=== PATIENT | male | born 1935 | race Caucasian/White ===

== ENCOUNTER 2016-08-16 18:13 | Observation (INO) | payer OTHER ==
[2016-08-16 18:20] VITALS: BMI 22.8
[2016-08-16] MEDS ORDERED: ASPIRIN 81 MG CHEWABLE TABLETS PO ONE (19:32)
[2016-08-16] MEDS ORDERED: METOPROLOL TARTRATE 5 MG/5 ML VIAL IVPUSH ONE (19:49)
--- NOTE | 2016-08-16 19:49 | PDOC ---
History of Present Illness - General History Source: Patient Exam Limitations: No Limitations - History of Present Illness Initial Comments: 08/16/16 19:51 The patient is a 80 year old male with significant past medical history of prostate CA with seeds, hypertension, and hyperlipidemia who presents to the ED with 2 days of chest pain. Patient describes his chest pain as stiffness, nonradiating, that is worsened with exertion. He states he is a runner, however he notes that when he walks up the stairs, his chest pain worsens. Patient reports associated SOB and lightheadedness. He took a baby aspirin at around 4pm today with no improvement. He denies diaphoresis, shoulder pain, arm pain, and jaw pain. Patient reports he experience similar symptoms in 2016, where he visited the ED and was sent to [facility]. At that time, he had a angiogram that did not require a stenting procedure. The patient denies fever, chills, cough, abdominal pain, nausea, vomiting, and diarrhea. Allergies: NKDA Social History: No alcohol, tobacco, or drug use reported. Past Surgical History: angiogram PCP: Dr. Fabián Alba <Jess Montalvo - Last Filed: 08/16/16 22:36> - General History Source: Patient <Chris Lloyd - Last Filed: 08/16/16 22:39> - General Chief Complaint: Chest Pain Stated Complaint: CHEST PAIN Time Seen by Provider: 08/16/16 19:49 Past History <Jess Montalvo - Last Filed: 08/16/16 22:36> - Past Medical History Cancer: Yes (prostate ca with seeds 2004) HTN: Yes (NON COMP WITH MEDS/) - Immunization History Immunization Up to Date: Yes - Psycho/Social/Smoking Cessation Hx Anxiety: No Suicidal Ideation: No Smoking Status: No Smoking History: Never smoked Have you smoked in the past 12 months: No Number of Cigarettes Smoked Daily: 0 Hx Alcohol Use: No Drug/Substance Use Hx: No Substance Use Type: None <Chris Lloyd - Last Filed: 08/16/16 22:39> - Past Medical History Allergies/Adverse Reactions: Allergies Allergy/AdvReac Type Severity Reaction Status Date / Time No Known Allergies Allergy Verified 08/16/16 18:19 Home Medications: Ambulatory Orders Atorvastatin Ca [Lipitor] 10 mg PO HS #30 tablet 10/28/15 Clopidogrel Bisulfate [Plavix -] 75 mg PO DAILY #30 tablet 10/28/15 Review of Systems - Review of Systems Able to Perform ROS?: Yes Comments:: 08/16/16 19:51 CONSTITUTIONAL: Absent: fever, chills, diaphoresis, generalized weakness, malaise, loss of appetite HEENT: Absent: rhinorrhea, nasal congestion, throat pain, throat swelling, difficulty swallowing, mouth swelling, ear pain, eye pain, visual Changes CARDIOVASCULAR: +chest pain, lightheadedness Absent: syncope, palpitations, irregular heart rate , peripheral edema RESPIRATORY: +SOB Absent: cough, dyspnea with exertion, orthopnea, wheezing, stridor, hemoptysis GASTROINTESTINAL: Absent: abdominal pain, abdominal distension, nausea, vomiting, diarrhea, constipation, melena, hematochezia GENITOURINARY: Absent: dysuria, frequency, urgency, hesitancy, hematuria, flank pain, genital pain MUSCULOSKELETAL: Absent: myalgia, arthralgia, joint swelling SKIN: Absent: rash, itching, pallor NEUROLOGIC: Absent: headache, focal weakness or paresthesias, dizziness, unsteady gait, seizure, mental status changes, bladder or bowel incontinence PSYCHIATRIC: Absent: anxiety, depression, suicidal or homicidal ideation, hallucinations. <Jess Montalvo - Last Filed: 08/16/16 22:36> *Physical Exam - Vital Signs Last Vital Signs Temp Pulse Resp BP Pulse Ox 97.5 F L 81 20 183/98 98 08/16/16 18:16 08/16/16 18:16 08/16/16 18:16 08/16/16 18:16 08/16/16 18:16 - Physical Exam Comments: 08/16/16 19:51 GENERAL: Well developed, well nourished. Awake and alert. No acute distress. HEENT: Normocephalic, atraumatic. PERRLA, EOMI. No conjunctival pallor. Sclera are non- icteric. Moist mucous membranes. Oropharynx is clear. NECK: Supple. Full ROM. No JVD. Carotid pulses 2+ and symmetric, without bruits. No thyromegaly. No lymphadenopathy. CARDIOVASCULAR: Regular rate and rhythm. No murmurs, rubs, or gallops. Distal pulses are 2+ and symmetric. PULMONARY: No evidence of respiratory distress. Lungs clear to auscultation bilaterally. No wheezing, rales or rhonchi. ABDOMINAL: Soft. Non-tender. Non-distended. No rebound or guarding. No organomegaly. Normoactive bowel sounds. MUSCULOSKELETAL Normal range of motion at all joints. No bony deformities or tenderness. No CVA tenderness. EXTREMITIES: No cyanosis. No clubbing. No edema. No calf tenderness. SKIN: Warm and dry. Normal capillary refill. No rashes. No jaundice. NEUROLOGICAL: Alert, awake, appropriate. Cranial nerves 2-12 intact. Moving all extremities. No focal neurological deficits. PSYCHIATRIC: Cooperative. Good eye contact. Appropriate mood and affect. <Jess Montalvo - Last Filed: 08/16/16 22:36> - Vital Signs Last Vital Signs Temp Pulse Resp BP Pulse Ox 97.5 F L 81 20 183/98 98 08/16/16 18:16 08/16/16 18:16 08/16/16 18:16 08/16/16 18:16 08/16/16 18:16 <Chris Lloyd - Last Filed: 08/16/16 22:39> Heart Score/ECG Review - ECG Impressions Comment:: 08/16/16 19:51 Sinus rhythm with premature atrial complexes @74bpm RBBB Left anterior fascicular block Bifascicular block Abnormal ECG <Jess Montalvo - Last Filed: 08/16/16 22:36> ED Treatment Course - LABORATORY CBC & Chemistry Diagram: 08/16/16 20:00 08/16/16 20:00 <Jess Montalvo - Last Filed: 08/16/16 22:36> - LABORATORY CBC & Chemistry Diagram: 08/16/16 20:00 08/16/16 20:00 - RADIOLOGY Radiology Studies Ordered: Category Date Time Status CHEST PA & LAT [RAD] Stat Radiology 08/16/16 19:32 Ordered <Chris Lloyd - Last Filed: 08/16/16 22:39> Medical Decision Making - Medical Decision Making 08/16/16 21:[address] Joelle Alba (via answering service) at 21:58, 22:[address] Alie Sanchez (covering for Dr. Alba) responded back at 22:36 and patient's case was discussed. <Jess Montalvo - Last Filed: 08/16/16 22:36> - Medical Decision Making 08/16/16 22:38 Dr. Lloyd: The scribe's documentation has been prepared under my direction and personally reviewed by me in its entirery. I confirm that the note above accurately reflects all work, treatment, procedures, and medical decision making performed by me. Spoke for covering physician for 's PCP. Pt to be admitted to inpatient telemetry <Chris Lloyd - Last Filed: 08/16/16 22:39> *DC/Admit/Observation/Transfer - Attestations Scribe Attestion: 08/16/16 19:53 Documentation prepared by Jess Montalvo, acting as medical administrative technician for Chris Lloyd MD <Jess Montalvo - Last Filed: 08/16/16 22:36> - Discharge Dispostion Admit: Yes <Chris Lloyd - Last Filed: 08/16/16 22:39> Diagnosis at time of Disposition: Chest pain - Discharge Dispostion Condition at time of disposition: Stable - Referrals Referrals: Fabián Alba MD [Primary Care Provider] -
[2016-08-16] MEDS ORDERED: ASPIRIN 81 MG CHEWABLE TABLETS ONE (19:51)
[2016-08-16 20:09] LABS: BASOPHIL 0.6 % (0-2.0); EOSINOPHIL 0.3 % (0-4.5); MCH 28.5 pg (25.7-33.7); MCHC 32.3 g/dl (32.0-35.9); MEAN CELL VOLUME 88.2 fl (80-96); MEAN PLT VOLUME 8.9 fl (7.5-11.1); NEUTROPHILS 73.5 % (42.8-82.8); PLATELET COUNT 273 K/MM3 (134-434); RDW 13.6 % (11.9-15.9); WHITE BLOOD COUNT 8.2 K/mm3 (4.0-10.0)
[2016-08-16] MEDS ORDERED: METOPROLOL TARTRATE 5 MG/5 ML VIAL ONE (20:09)
[2016-08-16 20:35] LABS: INR 1.11 (0.82-1.09); PROTHROMBIN TIME (PATIENT) 12.2 SEC (9.98-11.88)
[2016-08-16 20:43] LABS: ALBUMIN 4.2 g/dl (3.4-5.0); ANION GAP 5 (8-16); CALCIUM 9.9 mg/dL (8.5-10.1); CO2 30 mmol/L (21-32); GLUCOSE,RANDOM 103 mg/dL (74-106); MAGNESIUM 2.4 mg/dL (1.8-2.4); SGOT/AST 16 U/L (15-37); SGPT/ALT 23 U/L (12-78)
[2016-08-16 20:48] LABS: ALK PHOS 103 U/L (45-117); BILIRUBIN,TOTAL 0.6 mg/dL (0.2-1.0); TOT PROT 7.5 g/dl (6.4-8.2); TROPONIN I < 0.02 ng/ml (0.00-0.05)
[2016-08-17 08:09] LABS: CHOLESTEROL 158 mg/dL (50-200); LDL CHOLESTEROL (ONLY SJRH) 89 mg/dL (5-100); TROPONIN I < 0.02 ng/ml (0.00-0.05)
--- NOTE | 2016-08-17 09:06 | HP ---
Admitting History and Physical - Primary Care Physician PCP: Fabián Alba - Admission Chief Complaint: chest tightness History of Present Illness: Shovelled snow this weekend, since then he noted exertional dyspnea with some chest tightness. None at rest. Otherwise in his usual state of health. Was here last October for similar symptoms and mildly positive stress test. At that time he went for [email or web address] which was reportedly ok. History Source: Patient Limitations to Obtaining History: No Limitations - Past Medical History Cardiovascular: Yes: HTN (hypertensive in ER yesterday, not since.) Pulmonary: Yes: COPD Renal/: Yes: Other (Prostate ca s/p seeds) - Smoking History Smoking history: Former smoker Have you smoked in the past 12 months: No Aproximately how many cigarettes per day: 0 - Alcohol/Substance Use Hx Alcohol Use: No - Social History Usual Living Arrangement: Yes: With Significant Other ADL: Independent History of Recent Travel: No Home Medications - Allergies Allergies/Adverse Reactions: Allergies Allergy/AdvReac Type Severity Reaction Status Date / Time No Known Allergies Allergy Verified 08/16/16 18:19 - Home Medications Home Medications: Ambulatory Orders Atorvastatin Ca [Lipitor] 10 mg PO HS #30 tablet 10/28/15 Clopidogrel Bisulfate [Plavix -] 75 mg PO DAILY #30 tablet 10/28/15 Family Disease History - Family Disease History Family History: Unremarkable Review of Systems - Review of Systems Constitutional: denies: No Symptoms Eyes: denies: No Symptoms HENT: denies: No Symptoms Neck: denies: No Symptoms Cardiovascular: reports: Chest Pain, Shortness of Breath Respiratory: denies: Cough, Orthopnea Genitourinary: denies: No Symptoms Musculoskeletal: denies: No Symptoms Neurological: denies: No Symptoms Hematology/Lymphatic: denies: No Symptoms Psychiatric: denies: No Symptoms Physical Examination Vital Signs: Vital Signs Temperature 97.5 F L 08/17/16 06:00 Pulse Rate 56 L 08/17/16 06:00 Respiratory Rate 18 08/17/16 06:00 Blood Pressure 122/64 08/17/16 06:00 O2 Sat by Pulse Oximetry (%) 99 08/16/16 23:53 Constitutional: Yes: No Distress, Calm Eyes: Yes: EOM Intact HENT: Yes: Normocephalic Neck: Yes: Trachea Midline Cardiovascular: Yes: Regular Rate and Rhythm Respiratory: Yes: CTA Bilaterally Gastrointestinal: Yes: Normal Bowel Sounds, Soft Musculoskeletal: Yes: WNL Extremities: Yes: WNL Edema: No Neurological: Yes: WNL Psychiatric: Yes: WNL Labs: CBC,CMP WBC 8.2 K/mm3 (4.0-10.0) 08/16/16 20:00 RBC 5.24 M/mm3 (4.00-5.60) 08/16/16 20:00 Hgb 14.9 GM/dL (11.7-16.9) 08/16/16 20:00 Hct 46.2 % (35.4-49) 08/16/16 20:00 MCV 88.2 fl (80-96) 08/16/16 20:00 MCHC 32.3 g/dl (32.0-35.9) 08/16/16 20:00 RDW 13.6 % (11.9-15.9) 08/16/16 20:00 Plt Count 273 K/MM3 (134-434) D 08/16/16 20:00 MPV 8.9 fl (7.5-11.1) 08/16/16 20:00 Neutrophils % 73.5 % (42.8-82.8) 08/16/16 20:00 Lymphocytes % 15.5 % (8-40) D 08/16/16 20:00 Monocytes % 10.1 % (3.8-10.2) 08/16/16 20:00 Eosinophils % 0.3 % (0-4.5) 08/16/16 20:00 Basophils % 0.6 % (0-2.0) 08/16/16 20:00 Sodium 139 mmol/L (136-145) 08/16/16 20:00 Potassium 4.8 mmol/L (3.5-5.1) 08/16/16 20:00 Chloride 104 mmol/L (98-107) 08/16/16 20:00 Carbon Dioxide 30 mmol/L (21-32) 08/16/16 20:00 Anion Gap 5 (8-16) L 08/16/16 20:00 BUN 16 mg/dL (7-18) 08/16/16 20:00 Creatinine 1.0 mg/dL (0.7-1.3) 08/16/16 20:00 Creat Clearance w eGFR > 60 (>60) 08/16/16 20:00 Random Glucose 103 mg/dL (74-106) 08/16/16 20:00 Calcium 9.9 mg/dL (8.5-10.1) 08/16/16 20:00 Magnesium 2.4 mg/dL (1.8-2.4) 08/16/16 20:00 Total Bilirubin 0.6 mg/dL (0.2-1.0) 08/16/16 20:00 AST 16 U/L (15-37) D 08/16/16 20:00 ALT 23 U/L (12-78) 08/16/16 20:00 Alkaline Phosphatase 103 U/L (45-117) 08/16/16 20:00 Creatine Kinase 60 IU/L (39-308) 08/17/16 05:35 Troponin I < 0.02 ng/ml (0.00-0.05) 08/17/16 05:35 Total Protein 7.5 g/dl (6.4-8.2) 08/16/16 20:00 Albumin 4.2 g/dl (3.4-5.0) 08/16/16 20:00 Triglycerides 125 mg/dL (35-160) D 08/17/16 05:35 Cholesterol 158 mg/dL (50-200) 08/17/16 05:35 Total LDL Cholesterol 89 mg/dL (5-100) D 08/17/16 05:35 HDL Cholesterol 53 mg/dL (40-60) D 08/17/16 05:35 Laboratory Last Values WBC 8.2 K/mm3 (4.0-10.0) 08/16/16 20:00 RBC 5.24 M/mm3 (4.00-5.60) 08/16/16 20:00 Hgb 14.9 GM/dL (11.7-16.9) 08/16/16 20:00 Hct 46.2 % (35.4-49) 08/16/16 20:00 MCV 88.2 fl (80-96) 08/16/16 20:00 MCHC 32.3 g/dl (32.0-35.9) 08/16/16 20:00 RDW 13.6 % (11.9-15.9) 08/16/16 20:00 Plt Count 273 K/MM3 (134-434) D 08/16/16 20:00 MPV 8.9 fl (7.5-11.1) 08/16/16 20:00 Neutrophils % 73.5 % (42.8-82.8) 08/16/16 20:00 Lymphocytes % 15.5 % (8-40) D 08/16/16 20:00 Monocytes % 10.1 % (3.8-10.2) 08/16/16 20:00 Eosinophils % 0.3 % (0-4.5) 08/16/16 20:00 Basophils % 0.6 % (0-2.0) 08/16/16 20:00 INR 1.11 (0.82-1.09) 08/16/16 20:00 Sodium 139 mmol/L (136-145) 08/16/16 20:00 Potassium 4.8 mmol/L (3.5-5.1) 08/16/16 20:00 Chloride 104 mmol/L (98-107) 08/16/16 20:00 Carbon Dioxide 30 mmol/L (21-32) 08/16/16 20:00 Anion Gap 5 (8-16) L 08/16/16 20:00 BUN 16 mg/dL (7-18) 08/16/16 20:00 Creatinine 1.0 mg/dL (0.7-1.3) 08/16/16 20:00 Creat Clearance w eGFR > 60 (>60) 08/16/16 20:00 Random Glucose 103 mg/dL (74-106) 08/16/16 20:00 Calcium 9.9 mg/dL (8.5-10.1) 08/16/16 20:00 Magnesium 2.4 mg/dL (1.8-2.4) 08/16/16 20:00 Total Bilirubin 0.6 mg/dL (0.2-1.0) 08/16/16 20:00 AST 16 U/L (15-37) D 08/16/16 20:00 ALT 23 U/L (12-78) 08/16/16 20:00 Alkaline Phosphatase 103 U/L (45-117) 08/16/16 20:00 Creatine Kinase 60 IU/L (39-308) 08/17/16 05:35 Troponin I < 0.02 ng/ml (0.00-0.05) 08/17/16 05:35 Total Protein 7.5 g/dl (6.4-8.2) 08/16/16 20:00 Albumin 4.2 g/dl (3.4-5.0) 08/16/16 20:00 Triglycerides 125 mg/dL (35-160) D 08/17/16 05:35 Cholesterol 158 mg/dL (50-200) 08/17/16 05:35 Total LDL Cholesterol 89 mg/dL (5-100) D 08/17/16 05:35 HDL Cholesterol 53 mg/dL (40-60) D 08/17/16 05:35 Imaging - Results Chest X-ray: Report Reviewed EKG: Report Reviewed Problem List - Problems (1) Chest pain Code(s): R07.9 - CHEST PAIN, UNSPECIFIED Assessment/Plan serial cardiac enzymes are negative requested echo cardiology f/up
[2016-08-17] MEDS: ASPIRIN COATED 81 MG TABLET.EC PO SCH (09:42)
[2016-08-17] MEDS: CLOPIDOGREL BISULFATE 75 MG TABLET (FP) PO SCH (09:42)
--- NOTE | 2016-08-17 11:07 | CONSULT ---
Consult Consult Specialty:: cardiology Reason for Consultation:: hx non-obstructive CAD (11/2015 cath); now with chest pain while shoveling snow. - History of Present Illness Chief Complaint: Presently aysmptomatic. 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 Patient describes his chest pain as stiffness, nonradiating, that is worsened with exertion. He states he is a runner (15-20 miles weekly during the warmer months); however he notes that when he walks up the stairs for the past 2 years, his chest pain worsens; he tries to lie still in bed because moving his arms or torso causes more chest pain. Patient reports associated SOB and lightheadedness. He took a baby aspirin at around 4pm today with no improvement. He denies diaphoresis or jaw pain. These symptoms were similar to those felt during the 11/2015 admission that resulted in a coronary angiogram. The patient denies fever, chills, cough, abdominal pain, nausea, vomiting, and diarrhea. - History Source History Provided By: Patient, Medical Record Limitations to Obtaining History: No Limitations - Past Medical History Cardio/Vascular: Yes: HTN (hypertensive in ER yesterday, not since.) Pulmonary: Yes: COPD Renal/: Yes: Other (Prostate ca s/p seeds) Psych: Yes: Anxiety - Past Surgical History Additional Surgical History: coronary angiogram 11/2015 - Alcohol/Substance Use Hx Alcohol Use: No - Smoking History Smoking history: Former smoker Have you smoked in the past 12 months: No Aproximately how many cigarettes per day: 0 - Social History ADL: Independent History of Recent Travel: No Home Medications - Allergies Allergies/Adverse Reactions: Allergies Allergy/AdvReac Type Severity Reaction Status Date / Time No Known Allergies Allergy Verified 08/16/16 18:19 - Home Medications Home Medications: Ambulatory Orders Atorvastatin Ca [Lipitor] 10 mg PO HS #30 tablet 10/28/15 Clopidogrel Bisulfate [Plavix -] 75 mg PO DAILY #30 tablet 10/28/15 Family Disease History - Family Disease History Family History: Denies Review of Systems - Review of Systems Constitutional: reports: No Symptoms Eyes: reports: No Symptoms HENT: reports: No Symptoms Neck: reports: No Symptoms Cardiovascular: reports: Chest Pain, Shortness of Breath Respiratory: reports: SOB on Exertion - Risk Factors Known Risk Factors: Yes: Gender, Hypercholesterolemia, Smoking (former), Other ( COPD) Vital Signs: Vital Signs Temperature 98.4 F 08/17/16 10:01 Pulse Rate 73 08/17/16 10:01 Respiratory Rate 18 08/17/16 10:01 Blood Pressure 99/54 08/17/16 10:01 O2 Sat by Pulse Oximetry (%) 99 08/17/16 10:01 Constitutional: Yes: Calm Eyes: Yes: WNL HENT: Yes: WNL Neck: Yes: WNL Respiratory: Yes: Diminished Gastrointestinal: Yes: Soft Renal/: No: Anuria Cardiovascular: Yes: Regular Rate and Rhythm JVD: No Carotid Bruit: No Heart Sounds: Yes: S1, Split S2 Murmur: Yes: Systolic Murmur, Grade 2 Musculoskeletal: Yes: WNL Extremities: Yes: WNL Edema: No Peripheral Pulses WNL: Yes Integumentary: Yes: WNL Neurological: Yes: Alert, Oriented Psychiatric: Yes: WNL - Other Data Labs, Other Data: INR, PTT INR 1.11 (0.82-1.09) 08/16/16 20:00 Ejection Fraction %: LVEF > or = 40 % Imaging - Results Chest X-ray: Image Reviewed (no acute pathology) EKG: Image Reviewed (NSR; RBBB; LAFB) Problem List - Problems (1) Bifascicular bundle branch block Assessment/Plan: unchanged from early 2016. Code(s): I45.2 - BIFASCICULAR BLOCK (2) Contusion of rib on left side Code(s): S20.212A - CONTUSION OF LEFT FRONT WALL OF THORAX, INITIAL ENCOUNTER Qualifiers: Qualified Code(s): S20.212A - Contusion of left front wall of thorax, initial encounter (3) Hypertension Code(s): I10 - ESSENTIAL (PRIMARY) HYPERTENSION (4) Hyperlipidemia Assessment/Plan: on atorvastatin. Code(s): E78.5 - HYPERLIPIDEMIA, UNSPECIFIED (5) Chest pain Assessment/Plan: TNI negative x 2. EKG: normal sinus rhythm; bifascicular block (chronic). Atypical chest pain (started 1 1/2 days after shoveling snow, and was relatively constant x 3 days, and exacerbated by moving arms or torso). Pt has also had nasal congestion recently. Coronary angiogram 11/2015: mild multivessel non-obstructive disease (copy of angiogram placed in chart). Await ECHO for LVEF, wall motion. If no significant changes, consider f/u as cardilac outpatient. Code(s): R07.9 - CHEST PAIN, UNSPECIFIED
--- NOTE | 2016-08-17 11:16 | EKG ---
Test Reason : Blood Pressure : / mmHG Vent. Rate : 074 BPM Atrial Rate : 074 BPM P-R Int : 170 ms QRS Dur : 130 ms QT Int : 410 ms P-R-T Axes : 055 -45 023 degrees QTc Int : 455 ms POOR DATA QUALITY, INTERPRETATION MAY BE ADVERSELY AFFECTED SINUS RHYTHM WITH PREMATURE ATRIAL COMPLEXES RIGHT BUNDLE BRANCH BLOCK LEFT ANTERIOR FASCICULAR BLOCK BIFASCICULAR BLOCK ABNORMAL ECG WHEN COMPARED WITH ECG OF 27-OCT-2015 09:22, T WAVE INVERSION NOW EVIDENT IN ANTERIOR LEADS Confirmed by SUNNY NATARAJAN MD ([id number]) on 08/17/2016 11:15:50 AM Referred By: Confirmed By:SUNNY NATARAJAN MD
[2016-08-17] MEDS ORDERED: ATORVASTATIN CA 10 MG TABLET (FP) PO SCH (22:00)
[2016-08-18 06:11] VITALS: BP 132/76; PULSE 60; TEMP 98
--- NOTE | 2016-08-18 08:23 | DS ---
Physical Examination Vital Signs: Vital Signs Temperature 98.0 F 08/18/16 06:00 Pulse Rate 60 08/18/16 06:00 Respiratory Rate 18 08/18/16 06:00 Blood Pressure 132/76 08/18/16 06:00 O2 Sat by Pulse Oximetry (%) 99 08/17/16 22:00 Findings/Remarks: feels well Constitutional: Yes: Well Nourished Eyes: Yes: Conjunctiva Clear HENT: Yes: Normocephalic Neck: Yes: Trachea Midline Cardiovascular: Yes: Regular Rate and Rhythm Respiratory: Yes: CTA Bilaterally Edema: No Neurological: Yes: WNL Discharge Summary Reason For Visit: CHEST PAIN Current Active Problems Chest pain (Acute) Hyperlipidemia (Acute) Hospital Course: Admitted for atypical chest pain, -card cath 9 months ago shoiwed non- obstructing CAD. serial cardiac enzymes and echo were normal, offers no complaints, medically stable to go home with outpt f/up. Condition: Good - Instructions Referrals: Fabián Alba MD [Primary Care Provider] - Huang Moreno MD [Staff Physician] - Disposition: HOME - Home Medications Comprehensive Discharge Medication List: Ambulatory Orders Atorvastatin Ca [Lipitor] 10 mg PO HS #30 tablet 10/28/15 Clopidogrel Bisulfate [Plavix -] 75 mg PO DAILY #30 tablet 10/28/15
[2016-08-18] MEDS: ASPIRIN COATED 81 MG TABLET.EC PO SCH (09:10)
[2016-08-18] MEDS: CLOPIDOGREL BISULFATE 75 MG TABLET (FP) PO SCH (09:10)
--- NOTE | 2016-08-18 09:19 | PN ---
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 Patient describes his chest pain as stiffness, nonradiating, that is worsened with exertion. He states he is a runner (15-20 miles weekly during the warmer months); however he notes that when he walks up the stairs for the past 2 years, his chest pain worsens; he tries to lie still in bed because moving his arms or torso causes more chest pain. Patient reports associated SOB and lightheadedness. He took a baby aspirin at around 4pm today with no improvement. He denies diaphoresis or jaw pain. These symptoms were similar to those felt during the 11/2015 admission that resulted in a coronary angiogram. The patient denies fever, chills, cough, abdominal pain, nausea, vomiting, and diarrhea. - Current Medication List Current Medications: Active Medications Aspirin (Ecotrin -) 81 mg PO DAILY [facility] Last Admin: 08/18/16 09:10 Dose: 81 mg Atorvastatin Calcium (Lipitor -) 10 mg PO HS [facility] Last Admin: 08/17/16 21:07 Dose: 10 mg Clopidogrel Bisulfate (Plavix -) 75 mg PO DAILY [facility] Last Admin: 08/18/16 09:10 Dose: 75 mg - Objective Vital Signs: Vital Signs Temperature 98.0 F 08/18/16 06:00 Pulse Rate 60 08/18/16 06:00 Respiratory Rate 18 08/18/16 06:00 Blood Pressure 132/76 08/18/16 06:00 O2 Sat by Pulse Oximetry (%) 99 08/17/16 22:00 Constitutional: Yes: Calm Eyes: Yes: WNL HENT: Yes: WNL Neck: Yes: WNL Cardiovascular: Yes: Regular Rate and Rhythm Respiratory: Yes: WNL Gastrointestinal: Yes: Soft ...Rectal Exam: Yes: Deferred Genitourinary: No: Anuria Breast(s): Yes: WNL Musculoskeletal: Yes: WNL Extremities: Yes: WNL Edema: No Peripheral Pulses WNL: Yes Integumentary: Yes: WNL Neurological: Yes: WNL ...Motor Strength: WNL Psychiatric: Yes: WNL Labs: INR, PTT INR 1.11 (0.82-1.09) 08/16/16 20:00 Problem List - Problems (1) Bifascicular bundle branch block Assessment/Plan: unchanged from early 2016. Code(s): I45.2 - BIFASCICULAR BLOCK (2) Contusion of rib on left side Code(s): S20.212A - CONTUSION OF LEFT FRONT WALL OF THORAX, INITIAL ENCOUNTER (3) Hypertension Code(s): I10 - ESSENTIAL (PRIMARY) HYPERTENSION (4) Hyperlipidemia Assessment/Plan: on atorvastatin. Code(s): E78.5 - HYPERLIPIDEMIA, UNSPECIFIED (5) Chest pain Assessment/Plan: TNI negative x 2. EKG: normal sinus rhythm; bifascicular block (chronic). Atypical chest pain (started 1 1/2 days after shoveling snow, and was relatively constant x 3 days, and exacerbated by moving arms or torso). Pt has also had nasal congestion recently. Coronary angiogram 11/2015: mild multivessel non-obstructive disease (copy of angiogram placed in chart). Await ECHO for LVEF, wall motion. If no significant changes, consider f/u as cardiac outpatient for stress test. Code(s): R07.9 - CHEST PAIN, UNSPECIFIED
== END 2016-08-18 09:20 | disposition home or self-care (01) ==
LOC: JER 18:13 → JERBED 22:24 → UNDOADMOB 22:24 → INTOOBSV 22:24 → J4S 23:54 → JERBED 23:54 → J4S 08-17 09:00
PROVIDERS: ADMIT Internal Medicine; ATTEND Internal Medicine
DX: I25.10 Atherosclerotic heart disease of native coronary artery without angina pectoris (principal); R07.9 Chest pain, unspecified; I10 Essential (primary) hypertension; E78.5 Hyperlipidemia, unspecified; Z85.46 Personal history of malignant neoplasm of prostate; J44.9 Chronic obstructive pulmonary disease, unspecified; Z98.61 Coronary angioplasty status; Z87.891 Personal history of nicotine dependence; R01.1 Cardiac murmur, unspecified; I45.2 Bifascicular block
CPT/HCPCS: 36415; 71020-TC; 80053; 80061; 82550; 83721; 83735; 84484; 85025; 85610; 93005; 93010; 93306-TC; 99283-25; G0378

== ENCOUNTER 2017-11-06 14:16 | Emergency (ER) | payer OTHER ==
[2017-11-06 14:25] VITALS: BP 154/75; PULSE 92; TEMP 97.9; BMI 22.8
[2017-11-06] MEDS ORDERED: KETOROLAC TROMETHAMINE 60 MG/2 ML VIAL IM ONE (14:58)
[2017-11-06] MEDS ORDERED: KETOROLAC TROMETHAMINE 30 MG/1 ML VIAL ONE (15:02)
--- NOTE | 2017-11-06 15:02 | PDOC ---
History of Present Illness - General Chief Complaint: Back Pain Stated Complaint: BACK PAIN Time Seen by Provider: 11/06/17 14:17 History Source: Patient Exam Limitations: No Limitations - History of Present Illness Initial Comments: 11/06/17 14:59 CHIEF COMPLAINT: [Lower back pain radiating down left leg. HISTORY OF PRESENT ILLNESS:82-year-old [male],[ who presents for evaluation of low back pain radiating down left leg. Patient able to ambulate without difficulty reports the pain started on Sunday after lifting a bucket of water. Patient reports has a history of low back pain that is similar however has never had pain radiating down left leg. No neurosensory deficits, no bowel or bladder difficulty incontinence or urinary retention, no saddle anesthesia, no footdrop. No history of IVDU or history of cancer. ] REVIEW OF SYSTEMS: GENERAL: Afebrile, denies any weakness RESPIRATORY: No cough, wheezing, or hemoptysis. CARDIAC: No chest pain or shortness of breath MUSCULOSKELETAL: Pain to generalized lower back. No point tenderness. Pain worse on the left than the right SKIN : No erythema, no bruising, no deformity. GI/: Denies any abdominal pain, no urinary difficulty, incontinence or urinary retention. RECTAL: Denies any difficulty this A.m. NEUROLOGICAL: Denies any numbness or tingling. No neurosensory deficits. PHYSICAL EXAM: GENERAL: The patient is awake, alert, and fully oriented, in no acute distress. RESPIRATORY: Lungs clear bilaterally, no rhonchi wheezes or crackles CARDIAC: S1-S2 audible, no murmur rub or gallop MUSCULOSKELETAL: Pain to generalized lower back, nonradiating, no tingling or sensory deficit. Less than 2 second cap refill, +4 popliteal and pedal pulses. GI/: Abdomen soft, nontender, nondistended. No rebound tenderness. No masses palpable. MUSCULOSKELETAL: No spinal point tenderness. Normal reflexive and no deficits to sensation or strength. RECTAL: [Normal Rectal Tone]. SKIN: Warm, Dry, normal turgor, no erythema, no edema no bruising. Past History - Past Medical History Allergies/Adverse Reactions: Allergies Allergy/AdvReac Type Severity Reaction Status Date / Time No Known Allergies Allergy Verified 11/06/17 14:17 Home Medications: Ambulatory Orders Atorvastatin Ca [Lipitor] 10 mg PO HS #30 tablet 10/28/15 Clopidogrel Bisulfate [Plavix -] 75 mg PO DAILY #30 tablet 10/28/15 Methylprednisolone [Medrol Dose Molina] 4 mg PO ASDIR #21 tablet 11/06/17 Tramadol HCl 50 mg PO TID #12 tablet MDD 3 11/06/17 Cancer: Yes (prostate ca with seeds 2004) COPD: No HTN: Yes (NON COMP WITH MEDS/) - Immunization History Immunization Up to Date: Yes - Suicide/Smoking/Psychosocial Hx Smoking Status: No Smoking History: Former smoker Have you smoked in the past 12 months: No Number of Cigarettes Smoked Daily: 0 Information on smoking cessation initiated: No Hx Alcohol Use: No Drug/Substance Use Hx: No Substance Use Type: None *Physical Exam - Vital Signs Last Vital Signs Temp Pulse Resp BP Pulse Ox 97.9 F 92 H 19 154/75 98 11/06/17 14:18 11/06/17 14:18 11/06/17 14:18 11/06/17 14:18 11/06/17 14:18 ED Treatment Course - RADIOLOGY Radiology Studies Ordered: Category Date Time Status LUMBAR SPINE CT W/O CONTRAST [CT] Stat CT Scan 11/06/17 14:57 Ordered Medical Decision Making - Medical Decision Making 11/06/17 15:01 A/P: Patient with lower back pain radiating down left leg consistent with sciatica however will perform CT scan rule out fracture. Toradol 30 mg IM 1 given. 11/06/17 16:42 CT scan: A moderate extruded left posterior lateral L5-S1 disc herniation, no fracture, chronic bilateral L5 spondylolysis, multiple degenerative disc with facet joint changes. Patient will need to follow-up with orthopedics Will refer patient to Dr figueroa. Patient with no current neurological findings reports pain is significantly decreased after Toradol. We'll discharge on Medrol Dosepak and Tylenol as needed. Follow up with Yamilka Enriquez will discharge patient on Medrol Dosepak and tramadol *DC/Admit/Observation/Transfer Diagnosis at time of Disposition: Herniated disc Qualifiers: Spinal region: lumbar Qualified Code(s): M51.26 - Other intervertebral disc displacement, lumbar region - Discharge Dispostion Disposition: HOME Condition at time of disposition: Stable Admit: No - Prescriptions Prescriptions: Methylprednisolone [Medrol Dose Molina] 4 mg PO ASDIR #21 tablet Tramadol HCl 50 mg PO TID #12 tablet MDD 3 - Referrals Referrals: Fabián Alba MD [Primary Care Provider] - Bhargav Figueroa MD [Staff Physician] - - Patient Instructions Additional Instructions: 1. Please return to the emergency department with any numbness, tingling, weakness, numbness or tingling to groin or legs, or loss of bowel or bladder function. 2. Use pain medication as ordered. 3. Please is to followup in the office of Dr. Figueroa for evaluation within a week if no improvement. 4. Ice or heat 5. Refrain from lifting anything above 10 pounds, until pain resolved. - Post Discharge Activity
== END 2017-11-06 17:06 | disposition home or self-care (01) ==
LOC: JER 14:16 → JERFT 14:16
PROC: 3E0233Z Introduction of Anti-inflammatory into Muscle, Percutaneous Approach (ICD-10-PCS; principal; 2017-11-06)
DX: M51.17 Intervertebral disc disorders with radiculopathy, lumbosacral region (principal); X50.0XXA Overexertion from strenuous movement or load, initial encounter; Y93.89 Activity, other specified; Y92.018 Other place in single-family (private) house as the place of occurrence of the external cause; Y99.8 Other external cause status; I10 Essential (primary) hypertension; Z91.14 Patient's other noncompliance with medication regimen; Z85.46 Personal history of malignant neoplasm of prostate; Z87.891 Personal history of nicotine dependence
CPT/HCPCS: 72131-TC; 96372; 99281-25

== ENCOUNTER 2017-11-28 15:12 | Emergency (ER) | payer OTHER ==
[2017-11-28 15:53] VITALS: TEMP 98; BMI 22.8
--- NOTE | 2017-11-28 16:00 | PDOC ---
History of Present Illness - General Chief Complaint: Back Pain Stated Complaint: BACK PAIN Time Seen by Provider: 11/28/17 15:56 - History of Present Illness Initial Comments: 11/28/17 15:57 82 HTN/HLD, disc herniation L5-S1 presents with lower back pain, worsening. Dr. Figueroa be seen today? couldn't attend appointment due to pain. 11/28/17 16:13 Past History - Past Medical History Allergies/Adverse Reactions: Allergies Allergy/AdvReac Type Severity Reaction Status Date / Time No Known Allergies Allergy Verified 11/06/17 14:17 Home Medications: Ambulatory Orders Atorvastatin Ca [Lipitor] 10 mg PO HS #30 tablet 10/28/15 Clopidogrel Bisulfate [Plavix -] 75 mg PO DAILY #30 tablet 10/28/15 Methylprednisolone [Medrol Dose Molina] 4 mg PO ASDIR #21 tablet 11/06/17 Tramadol HCl 50 mg PO TID #12 tablet MDD 3 11/06/17 Oxycodone HCl/Acetaminophen [Percocet 5-325 mg Tablet -] 1 tab PO BID #14 tablet MDD 2 11/28/17 Cancer: Yes (prostate ca with seeds 2004) COPD: No HTN: Yes (NON COMP WITH MEDS/) - Immunization History Immunization Up to Date: Yes - Suicide/Smoking/Psychosocial Hx Smoking Status: No Smoking History: Former smoker Have you smoked in the past 12 months: No Number of Cigarettes Smoked Daily: 0 If you are a former smoker, when did you quit?: 1979 Information on smoking cessation initiated: No Hx Alcohol Use: No Drug/Substance Use Hx: No Substance Use Type: None *Physical Exam - Vital Signs Last Vital Signs Temp Pulse Resp BP Pulse Ox 98 F 82 20 151/74 97 11/28/17 15:47 11/28/17 15:47 11/28/17 15:47 11/28/17 15:47 11/28/17 15:47 Heart Score/ECG Review #1 11/28/17 18:34 NSR@ 81bpm, 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 QTc 464. Medical Decision Making - Medical Decision Making 11/28/17 16:14 Pt with chronic back pain and some slight exacerbation of chronic back pain. No neurological deficits, able to walk --Will contact Dr. Figueroa to try and make close follow-up possible --Possibility of bridging over with pain medication until *DC/Admit/Observation/Transfer Diagnosis at time of Disposition: Herniated disc Qualifiers: Spinal region: lumbar Qualified Code(s): M51.26 - Other intervertebral disc displacement, lumbar region - Discharge Dispostion Disposition: HOME Condition at time of disposition: Stable Admit: No - Prescriptions Prescriptions: Oxycodone HCl/Acetaminophen [Percocet 5-325 mg Tablet -] 1 tab PO BID #14 tablet MDD 2 - Referrals - Patient Instructions Printed Discharge Instructions: DI for Lumbar Radiculopathy Additional Instructions: You were seen for your back pain. You have an appointment with Dr. Figueroa's offices Sunday12/04/17 at 3pm at [address] [place] [address] in [facility]. We will give you Percocet 5-355mg to take by mouth TWICE PER DAY as needed to help you to make your appointment on Sunday. If you develop urinary incontinence, changes in sensation of your legs like numbness or tingling, or suddenly can't walk please return. - Post Discharge Activity
--- NOTE | 2017-11-28 16:10 | PDOC ---
Attending Attestation - Resident Resident Name: Merrill Stacy - ED Attending Attestation I have performed the following: I have examined & evaluated the patient, The case was reviewed & discussed with the resident, I agree w/resident's findings & plan, Exceptions are as noted - HPI HPI: 11/28/17 17:07 Mr Winston is an 82 yo M who presents to the ER again with a complaint of back pain Briefly, pt was seen in the ER several weeks ago s/p work place injury He was discharged on pain medications. These have not helped He was referred to Dr Figueroa for evaluation He missed his appointment due to pain Patient reports has a history of low back pain that is similar however has never had pain radiating down left leg. No neurosensory deficits, no bowel or bladder difficulty incontinence or urinary retention, no saddle anesthesia, no footdrop. - Physicial Exam PE: 11/28/17 17:33 PHYSICAL EXAM: GENERAL: The patient is awake, alert, and fully oriented, in no acute distress. RESPIRATORY: Lungs clear bilaterally, no rhonchi wheezes or crackles CARDIAC: S1-S2 audible, no murmur rub or gallop MUSCULOSKELETAL: Pain to generalized lower back, nonradiating, no tingling or sensory deficit. Less than 2 second cap refill, +4 popliteal and pedal pulses. GI/: Abdomen soft, nontender, nondistended. No rebound tenderness. No masses palpable. MUSCULOSKELETAL: No spinal point tenderness. Sensation intact. Nml adduction, hip flexion, knee flexion, dorsi and plantar flexion SKIN: Warm, Dry, normal turgor, no erythema, no edema no bruising. - Medical Decision Making 11/28/17 17:34 Will give pain medications Will plan to discharge to home Appointment made for pt to follow up Pt requesting pain meds that work Return to the ER for any other concerns or complaints Clinical Impression: back pain, initial presentation Discharge Disposition - Diagnosis Herniated disc Qualifiers: Spinal region: lumbar Qualified Code(s): M51.26 - Other intervertebral disc displacement, lumbar region - Discharge Dispostion Disposition: HOME Condition at time of disposition: Stable Last Admission D/C Date: 10/28/15 Admit: No - Prescriptions Prescriptions: Oxycodone HCl/Acetaminophen [Percocet 5-325 mg Tablet -] 1 tab PO BID #14 tablet MDD 2 - Referrals - Patient Instructions Printed Discharge Instructions: DI for Lumbar Radiculopathy Additional Instructions: You were seen for your back pain. You have an appointment with Dr. Figueroa's offices Sunday12/04/17 at 3pm at [address] [place] [address] in [facility]. We will give you Percocet 5-355mg to take by mouth TWICE PER DAY as needed to help you to make your appointment on Sunday. If you develop urinary incontinence, changes in sensation of your legs like numbness or tingling, or suddenly can't walk please return. - Post Discharge Activity
[2017-11-28 18:09] VITALS: BP 150/78; PULSE 78
--- NOTE | 2017-11-30 09:59 | EKG ---
Test Reason : Blood Pressure : / mmHG Vent. Rate : 081 BPM Atrial Rate : 081 BPM P-R Int : 184 ms QRS Dur : 132 ms QT Int : 400 ms P-R-T Axes : 045 -50 024 degrees QTc Int : 464 ms NORMAL SINUS RHYTHM RIGHT BUNDLE BRANCH BLOCK LEFT ANTERIOR FASCICULAR BLOCK BIFASCICULAR BLOCK ABNORMAL ECG WHEN COMPARED WITH ECG OF 16-AUG-2016 18:22, PREMATURE ATRIAL COMPLEXES ARE NO LONGER PRESENT Confirmed by FRACISCO SIMMS MD ([id number]) on 11/30/2017 9:59:33 AM Referred By: Confirmed By:FRACISCO SIMMS MD
== END 2017-11-28 17:39 | disposition home or self-care (01) ==
LOC: JER 15:12
DX: M51.27 Other intervertebral disc displacement, lumbosacral region (principal); I10 Essential (primary) hypertension; E78.00 Pure hypercholesterolemia, unspecified; Z85.46 Personal history of malignant neoplasm of prostate; Z91.14 Patient's other noncompliance with medication regimen; Z87.891 Personal history of nicotine dependence
CPT/HCPCS: 93005; 93010; 99281-25

== ENCOUNTER 2019-08-07 11:49 | Emergency (ER) | payer OTHER ==
[2019-08-07 11:54] VITALS: TEMP 97.6; BMI 22.8
--- NOTE | 2019-08-07 12:01 | PDOC ---
History of Present Illness - General Chief Complaint: Urinary Problem Stated Complaint: URINARY PROBLEM Time Seen by Provider: 08/07/19 11:59 - History of Present Illness Initial Comments: 08/07/19 12:00 83 yo M PMH prostate CA with seeds 15 years ago (saw Dr. Mckeon), HTN, HLD, presenting with end-urination dysuria. States that he has had this issue for the past month, associated with occasional suprapubic discomfort. Has completed two outpatient antibiotic treatments without relief. Further complains that his chronic low back pain has been gotten worse in association with the dysuria. Endorses having hard stools without constipation/diarrhea. Denies urinary retention, hematuria, fevers/chills, N/V, NAYLOR. Past History - Past Medical History Allergies/Adverse Reactions: Allergies Allergy/AdvReac Type Severity Reaction Status Date / Time No Known Allergies Allergy Verified 08/07/19 11:54 Home Medications: Ambulatory Orders Atorvastatin Ca [Lipitor] 10 mg PO HS #30 tablet 10/28/15 Clopidogrel Bisulfate [Plavix -] 75 mg PO DAILY #30 tablet 10/28/15 Tramadol HCl 50 mg PO TID #12 tablet MDD 3 11/06/17 Oxycodone HCl/Acetaminophen [Percocet 5-325 mg Tablet -] 1 tab PO BID #14 tablet MDD 2 11/28/17 Oxycodone HCl/Acetaminophen [Percocet 5-325 mg Tablet] 1 tab PO BID PRN #4 tablet MDD 2 11/28/17 Ciprofloxacin HCl [Cipro] 500 mg PO TID 08/07/19 Tamsulosin HCl [Flomax] 0.4 mg PO DAILY 08/07/19 Cancer: Yes (prostate ca with seeds 2004) COPD: No HTN: Yes (NON COMP WITH MEDS/) - Immunization History Immunization Up to Date: Yes - Psycho Social/Smoking Cessation Hx Smoking Status: No Smoking History: Never smoked Have you smoked in the past 12 months: No Number of Cigarettes Smoked Daily: 0 If you are a former smoker, when did you quit?: 1979 Hx Alcohol Use: No Drug/Substance Use Hx: No Substance Use Type: None Review of Systems - Review of Systems Comments:: 08/07/19 14:19 GENERAL/CONSTITUTIONAL: No fever or chills. No weakness. HEAD, EYES, EARS, NOSE AND THROAT: No change in vision. No ear pain or discharge. No sore throat. CARDIOVASCULAR: No chest pain or shortness of breath. RESPIRATORY: No cough, wheezing, or hemoptysis. GASTROINTESTINAL: No nausea, vomiting, diarrhea or constipation. GENITOURINARY: Dysuria, no frequency. MUSCULOSKELETAL: No joint or muscle swelling or pain. No neck pain. Chronic low back pain. SKIN: No rash NEUROLOGIC: No headache, vertigo, loss of consciousness, or change in strength/ sensation. ENDOCRINE: No increased thirst. No abnormal weight change. HEMATOLOGIC/LYMPHATIC: No anemia, easy bleeding, or history of blood clots. ALLERGIC/IMMUNOLOGIC: No hives or skin allergy *Physical Exam - Vital Signs Last Vital Signs Temp Pulse Resp BP Pulse Ox 97.6 F 90 18 154/69 99 08/07/19 11:51 08/07/19 11:51 08/07/19 11:51 08/07/19 11:51 08/07/19 11:51 - Physical Exam 08/07/19 14:21 Gen: well-developed, well-nourished, NAD Neuro: AAOX4, CN II-XII intact, FTN intact, EOMI, PERRLA, 5/5 strength, SILT HEENT: atraumatic, normocephalic, dry mucous membranes Neck: trachea midline, supple CV: regular rate, regular rhythm, no murmurs, rubs, or gallops Pulm: CTA b/l, no wheezing Abd: soft, non-distended, non-tender : uncircumcised penis, no testicular tenderness, otherwise unremarkable MSK: full ROM, intact pulses Extr: no edema, no deformities Skin: warm, dry ED Treatment Course - LABORATORY CBC & Chemistry Diagram: 08/07/19 12:40 08/07/19 12:40 Medical Decision Making - Medical Decision Making 08/07/19 12:[address] Alba. Most recent urine culture no growth, before that had gram negative rods. Received ciprofloxacin both times. Dr. lAba recommends f/u with Dr. Mckeon. 08/07/19 14:27 Labs unconcerning. Will dc for further outpatient management. Discharge - Discharge Information Problems reviewed: Yes Clinical Impression/Diagnosis: Dysuria Condition: Stable Disposition: HOME - Follow up/Referral Referrals: Fabián Alba MD [Primary Care Provider] - Jatin Ling MD., MD [Staff Physician] - - Patient Discharge Instructions Patient Printed Discharge Instructions: DI for Dysuria -- Adult Additional Instructions: You were seen with burning while urinating. Your labs and physical exam were unconcerning. However, it is very important that you see your urologist Dr. Ling as soon as possible for further evaluation. Follow up with your primary care doctor within one week. Return to the ED if you develop worsening symptoms. - Post Discharge Activity
[2019-08-07 12:51] LABS: BASO % 0.6 % (0-2.0); EOS % 0.3 % (0-4.5); HEMATOCRIT 44.2 % (35.4-49); HEMOGLOBIN 14.8 GM/dL (11.7-16.9); MCH 30.4 pg (25.7-33.7); MCHC 33.5 g/dl (32.0-35.9); MEAN CELL VOLUME 90.5 fl (80-96); MEAN PLT VOLUME 8.6 fl (7.5-11.1); MONO % 8.6 % (3.8-10.2); NEUT % 82.5 % (42.8-82.8); PLATELET COUNT 240 K/MM3 (134-434); RBC 4.89 M/mm3 (4.00-5.60); RDW 13.5 % (11.9-15.9); WHITE BLOOD COUNT 8.9 K/mm3 (4.0-10.0)
[2019-08-07 13:25] LABS: ALBUMIN 4.1 g/dl (3.4-5.0); BILIRUBIN,TOTAL 0.4 mg/dL (0.2-1); BLOOD UREA NITROGEN 18.5 mg/dL (7-18); CALCIUM 9.6 mg/dL (8.5-10.1); POTASSIUM 4.4 mmol/L (3.5-5.1); TOT PROT 7.4 g/dl (6.4-8.2)
[2019-08-07 14:06] LABS: URINE APPEARANCE CLEAR; URINE BILIRUBIN NEGATIVE (NEGATIVE); URINE COLOR YELLOW; URINE GLUCOSE (UA) NEGATIVE (NEGATIVE); URINE KETONE NEGATIVE (NEGATIVE); URINE LEUK ESTERASE NEGATIVE (NEGATIVE); URINE NITRITE NEGATIVE (NEGATIVE); URINE PROTEIN NEGATIVE (NEGATIVE); URINE UROBILINOGEN 0.2 mg/dL (0.2-1.0)
--- NOTE | 2019-08-07 14:16 | PDOC ---
Documentation entered by Aminta Ryder SCRIBE, acting as scribe for Dee Pittman MD. Dee Pittman MD: This documentation has been prepared by the Aleskey murray Brenda, SCRIBE, under my direction and personally reviewed by me in its entirety. I confirm that the documentation accurately reflects all work, treatment, procedures, and medical decision making performed by me. Attending Attestation - Resident Resident Name: Radha Muñoz - ED Attending Attestation I have performed the following: I have examined & evaluated the patient, The case was reviewed & discussed with the resident, I agree w/resident's findings & plan, Exceptions are as noted - HPI HPI: 08/07/19 12:09 The patient is an 83 year old male, with a significant PMH of prostate cancer ( with seeds), COPD, HTN, HLD and disc herniation (L5-S1), who presents to the emergency department with dysuria towards the end of urination, which he associates with a suprapubic discomfort. Patient reports completeing 2 antibiotic treatments, to no avail. Ptient also endorses a worsening of a chronic lower back pain, which he also associates with the dysuria. Patient reports similar episodes prior. Patient also endorses hard stools but denies being constipated. The patient denies chest pain, SOB, headache or dizziness. Denies fever, chills , diarhea, urinary retention and hematuria. Denies nausea and vomitting. Allergies: NKA, NKDA - Physicial Exam PE: 08/07/19 14:12 awake alert lungs ctab heart rrrno mrg abd soft nt nd no cva tenderness. awake alert oriented. moves all four est. - Medical Decision Making 08/07/19 14:13 83 yo male h/o prostate ca s/p seeds 15 yrs ago ( dr britt) here with c/o dysuria. started few days ago, end of stream. also low back pain. no hematuria. was treated as outpt with abx x 2. pcp dr Woods. unsure abx. no n/v no fever. no other complaints. plan ua cultures. will ca.. pcp re recent abx, and cultures. pt tarik require fu with urology.
[2019-08-07 14:32] VITALS: BP 148/70; PULSE 84
== END 2019-08-07 14:38 | disposition home or self-care (01) ==
LOC: JER 11:49
DX: R30.0 Dysuria (principal); I10 Essential (primary) hypertension; E78.5 Hyperlipidemia, unspecified; Z85.46 Personal history of malignant neoplasm of prostate
CPT/HCPCS: 36415; 80053; 81003; 85025; 87086; 99282-25

== ENCOUNTER 2019-09-27 04:25 | Emergency (ER) | payer OTHER ==
[2019-09-27 04:35] VITALS: BMI 16.1
--- NOTE | 2019-09-27 04:36 | PDOC ---
Attending Attestation - Resident Resident Name: Bruna Allen - ED Attending Attestation I have performed the following: I have examined & evaluated the patient, The case was reviewed & discussed with the resident, I agree w/resident's findings & plan - HPI HPI: 09/28/19 04:51 Pt comes with urinary retention. He recently had a uhmmel cath removed, and he developed retention. Now with suprapubic pain. - Physicial Exam PE: 09/28/19 04:52 Agree with resident exam - Medical Decision Making 09/27/19 05:35 WBC normal UA normal Chem pending 09/28/19 04:52 Pt feels better after hummel placement. He will be signed out to the day team and he will be discharged home with a leg bag and f/u with his Dr. Ling
--- NOTE | 2019-09-27 05:02 | PDOC ---
History of Present Illness - General Chief Complaint: Urinary Problem Stated Complaint: URINARY PROBLEM,S/P SURGERY Time Seen by Provider: 09/27/19 04:36 - History of Present Illness Initial Comments: The pt is an 83M w/ a history of prostate cancer, BPH(?), HTN, COPD s/p prostate procedure on Sunday who presents for acute urinary retention for 5 hours. Pt reports lower abdominal pain/pressure that is constant, worsening, non -radiating, worsened with touch, and not alleviated by anything he can identify. Denies fevers, N/V, diarrhea, blood in his stool 09/27/19 04:58 Past History - Past Medical History Allergies/Adverse Reactions: Allergies Allergy/AdvReac Type Severity Reaction Status Date / Time No Known Allergies Allergy Verified 09/27/19 04:32 Home Medications: Ambulatory Orders Cefuroxime Axetil [Cefuroxime] 500 mg PO DAILY 09/27/19 Lisinopril [Prinivil] 10 mg PO DAILY 09/27/19 Cancer: Yes (prostate ca with seeds 2004) COPD: No HTN: Yes (NON COMP WITH MEDS/) - Immunization History Immunization Up to Date: Yes - Psycho Social/Smoking Cessation Hx Smoking Status: No Smoking History: Never smoked Have you smoked in the past 12 months: No Number of Cigarettes Smoked Daily: 0 If you are a former smoker, when did you quit?: 1979 Information on smoking cessation initiated: No Hx Alcohol Use: No Drug/Substance Use Hx: No Substance Use Type: None Review of Systems - Review of Systems Able to Perform ROS?: Yes Comments:: GENERAL/CONSTITUTIONAL: No fever or chills. No weakness HEAD, EYES, EARS, NOSE AND THROAT: No change in vision. No change in hearing. No sore throat CARDIOVASCULAR: No chest pain or shortness of breath RESPIRATORY: Denies cough, hemoptysis GASTROINTESTINAL: No nausea, vomiting, diarrhea or constipation GENITOURINARY: +urinary retention MUSCULOSKELETAL: No joint or muscle swelling or pain. No neck or back pain SKIN: No rash NEUROLOGIC: No headache, vertigo, loss of consciousness, or change in strength/ sensation ENDOCRINE: No increased thirst. No abnormal weight change HEMATOLOGIC/LYMPHATIC: No anemia, easy bleeding, or history of blood clots ALLERGIC/IMMUNOLOGIC: No hives or skin allergy 09/27/19 05:00 Is the patient limited Slovenian proficient: No *Physical Exam - Vital Signs Last Vital Signs Temp Pulse Resp BP Pulse Ox 98.0 F 116 H 20 106/73 94 L 09/27/19 04:32 09/27/19 04:32 09/27/19 04:32 09/27/19 04:32 09/27/19 04:32 - Physical Exam GENERAL: Awake, alert, and oriented to person/place/time, in no acute distress HEAD: No signs of trauma, normocephalic, atraumatic EYES: PERRLA, EOMI, sclera anicteric, conjunctiva clear ENT: Hearing grossly normal, nares patent, oropharynx clear without exudates. Moist mucosa LUNGS: No distress, speaks in full sentences, clear to auscultation bilaterally HEART: Tachycardic rate and regular rhythm, normal S1 and S2, no murmurs appreciated, peripheral pulses normal and equal bilaterally ABDOMEN: Soft, suprapubic fullness and TTP w/o rebound/guarding, normoactive bowel sounds EXTREMITIES: Normal inspection, Normal range of motion, no edema. No clubbing or cyanosis NEUROLOGICAL: Cranial nerves II through XII grossly intact. Normal speech, no focal sensorimotor deficits SKIN: Warm, Dry 09/27/19 05:00 ED Treatment Course - LABORATORY CBC & Chemistry Diagram: 09/27/19 05:05 09/27/19 05:05 Medical Decision Making - Medical Decision Making The pt is an 83M w/ a history of prostate cancer, BPH(?), COPD s/p prostate procedure on Sunday who presents for acute urinary retention for 5 hours. ED Course Hummel catheter placed CMP, CBC, UA, UCx 09/27/19 05:01 Pt feels improved at this time No leukocytosis No anemia UA w/ trace LE; 3+ blood with recent procedure -Pt on abx from Urologic surgery 09/27/19 05:59 CMP still pending 09/27/19 06:42 Cr at baseline Lytes unremarkable BUN 21.2, previous 18.5 LFTs unremarkable Plan for D/C w/ Urology f/u and leg bag Discharge instructions and return precautions given Pt in agreement and verbalizes understanding Dispo: home 09/27/19 07:04 Discharge - Discharge Information Problems reviewed: Yes Clinical Impression/Diagnosis: Urinary retention Condition: Stable Disposition: HOME - Admission No - Follow up/Referral Referrals: Fabián Alba MD [Primary Care Provider] - Jatin Ling MD., MD [Staff Physician] - - Patient Discharge Instructions Patient Printed Discharge Instructions: How to Care for Your Hummel Catheter -- Male Additional Instructions: You were seen in the Emergency Department for evaluation of urinary retention. A hummel was placed. Your labs were overall unremarkable. Follow up with your Urologist this coming week for evaluation. Review the handout provided at discharge. Return to the Emergency Department if you develop fevers, chest pain, trouble breathing, hummel issues, blood in your urine, worsening symptoms, or any new/ concerning symptoms. - Post Discharge Activity Work/Back to School Note: Back to Work
[2019-09-27 05:22] LABS: BASO % 0.5 % (0-2.0); EOS % 1.3 % (0-4.5); HEMATOCRIT 36.8 % (35.4-49); HEMOGLOBIN 12.6 GM/dL (11.7-16.9); LYMPH % 12.7 % (8-40); MCH 30.6 pg (25.7-33.7); MCHC 34.2 g/dl (32.0-35.9); MEAN CELL VOLUME 89.5 fl (80-96); MEAN PLT VOLUME 8.8 fl (7.5-11.1); MONO % 11.8 % (3.8-10.2); NEUT % 73.7 % (42.8-82.8); PLATELET COUNT 216 K/MM3 (134-434); RBC 4.11 M/mm3 (4.00-5.60); RDW 13.4 % (11.9-15.9); WHITE BLOOD COUNT 8.5 K/mm3 (4.0-10.0)
[2019-09-27 05:26] LABS: EPI CELLS 0.8 /HPF (0-5/HPF); HYALINE CASTS 4 /lpf (0-8); PH,URINE 6.5 (5.0-8.0); URINE APPEARANCE CLEAR; URINE BACTERIA 0.5 /hpf (NEGATIVE); URINE BILIRUBIN NEGATIVE (NEGATIVE); URINE COLOR YELLOW; URINE GLUCOSE (UA) NEGATIVE (NEGATIVE); URINE KETONE NEGATIVE (NEGATIVE); URINE LEUK ESTERASE TRACE (NEGATIVE); URINE NITRITE NEGATIVE (NEGATIVE); URINE PROTEIN 1+ (NEGATIVE); URINE RBC 96 /hpf (0-4); URINE UROBILINOGEN 0.2 mg/dL (0.2-1.0); URINE WBC 18 /hpf (0-5)
[2019-09-27 07:03] LABS: ALBUMIN 3.2 g/dl (3.4-5.0); BILIRUBIN,TOTAL 0.8 mg/dL (0.2-1); BLOOD UREA NITROGEN 21.2 mg/dL (7-18); CALCIUM 8.8 mg/dL (8.5-10.1); CREATININE 0.9 mg/dL (0.55-1.3); POTASSIUM 4.4 mmol/L (3.5-5.1); TOT PROT 6.1 g/dl (6.4-8.2)
[2019-09-27 07:48] VITALS: BP 113/62; PULSE 65; TEMP 98.2
== END 2019-09-27 07:45 | disposition home or self-care (01) ==
LOC: JER 04:25
PROC: 0T9B70Z Drainage of Bladder with Drainage Device, Via Natural or Artificial Opening (ICD-10-PCS; principal; 2019-09-27)
DX: N99.89 Other postprocedural complications and disorders of genitourinary system (principal); R33.8 Other retention of urine; I10 Essential (primary) hypertension; J44.9 Chronic obstructive pulmonary disease, unspecified; Z85.46 Personal history of malignant neoplasm of prostate; Z91.14 Patient's other noncompliance with medication regimen
CPT/HCPCS: 36415; 51702; 80053; 81003; 85025; 87086; 99283-25

== ENCOUNTER 2020-03-29 10:34 | Observation (INO) | payer OTHER ==
--- NOTE | 2020-03-29 10:59 | PDOC ---
History of Present Illness - General Chief Complaint: Chest Pain Stated Complaint: CHEST TIGHTNESS Time Seen by Provider: 03/29/20 10:58 History Source: Patient Exam Limitations: No Limitations - History of Present Illness Initial Comments: 84M with hx/o HTN, prostate CA, and previous smoker presents with chest tightness x3 days that's mid-sternal and non-radiating. He states that he normally goes on walks and over the past few days, towards the end of the walks he begins to feel SOB + chest tightness that improves with rest. He denies syncope, n/v, PND, orthopnea, or LE edema. HPI PMH: as in HPI SH: see below Meds: Allergies: NKDA Tob/Etoh/Rec drugs: neg x3 PCP: Dr. Parth SHARP GENERAL/CONSTITUTIONAL: No fever or chills. No weakness. HEENT: No change in vision. No ear pain or discharge. No sore throat. CARDIOVASCULAR: No chest pain or shortness of breath RESPIRATORY: No cough, wheezing, or hemoptysis. GASTROINTESTINAL: No nausea, vomiting, diarrhea or constipation. GENITOURINARY: No dysuria, frequency, or change in urination. MUSCULOSKELETAL: No joint or muscle swelling or pain. No neck or back pain. SKIN: No rash NEUROLOGIC: No headache, vertigo, loss of consciousness, or change in strength/sensation. ENDOCRINE: No increased thirst. No abnormal weight change HEMATOLOGIC/LYMPHATIC: No anemia, easy bleeding, or history of blood clots. ALLERGIC/IMMUNOLOGIC: No hives or skin allergy. PE GENERAL: Awake, alert, and fully oriented, in no acute distress HEAD: No signs of trauma, normocephalic, atraumatic EYES: PERRLA, EOMI, sclera anicteric, conjunctiva clear ENT: Auricles normal inspection, hearing grossly normal, nares patent, oropharynx clear without exudates. Moist mucosa NECK: Normal ROM, supple, no lymphadenopathy, JVD, or masses HEART: Regular rate and rhythm, normal S1 and S2, no murmurs, rubs or gallops, peripheral pulses normal and equal bilaterally. LUNGS: No distress, speaks full sentences, clear to auscultation bilaterally ABDOMEN: Soft, nontender, normoactive bowel sounds. No guarding, no rebound. No masses EXTREMITIES: Normal inspection, Normal range of motion, no edema. No clubbing or cyanosis. NEUROLOGICAL: CNII-XII grossly intact. Normal speech, normal gait, no focal sensorimotor deficits SKIN: Warm, Dry, normal turgor, no rashes or lesions noted Assessment and Plan 1. ACS r/o 2. CHF 3. COPD 4. PE Mike Barrow, PGY1 Emergency Medicine Past History - Medical History Allergies/Adverse Reactions: Allergies Allergy/AdvReac Type Severity Reaction Status Date / Time No Known Allergies Allergy Verified 03/29/20 10:43 Home Medications: Ambulatory Orders Lisinopril [Prinivil] 10 mg PO DAILY 09/27/19 Atorvastatin Calcium [Lipitor] 10 mg PO HS 03/29/20 Clonazepam 1 mg PO DAILY 03/29/20 Cancer: Yes (prostate ca with seeds 2004) COPD: No HTN: Yes (NON COMP WITH MEDS/) - Immunization History Immunization Up to Date: Yes - Psycho-Social/Smoking History Smoking Status: No Smoking History: Never smoked Have you smoked in the past 12 months: No Number of Cigarettes Smoked Daily: 0 If you are a former smoker, when did you quit?: 1979 - Substance Abuse Hx (Audit-C & DAST Scrn) How often the patient has a drink containing alcohol: Never Score: In Men: 4 or > Positive; In Women: 3 or > Positive: 0 Screen Result (Pos requires Nsg. Audit-10AR): Negative In the last yr the pt used illegal drug/Rx for NonMed reason: No Score: Yes response is considered Positive: 0 Screen Result (Positive result requires Nsg. DAST-10): Negative *Physical Exam - Vital Signs Last Vital Signs Temp Pulse Resp BP Pulse Ox 97.7 F 77 20 126/75 100 03/29/20 10:43 03/29/20 10:43 03/29/20 10:43 03/29/20 10:43 03/29/20 10:43 ED Treatment Course - LABORATORY CBC & Chemistry Diagram: 03/29/20 12:00 03/29/20 12:00 Medical Decision Making - Medical Decision Making 84M with hx/o HTN, prostate CA, and previous smoker presents with exertional chest tightness x3 days that's mid-sternal, non-radiating with associated SOB. Physical exam was unremarkable. CXR was unremarkable. CBC and CMP unremarkable. BNP within normal limits. Troponin negative. HEART score 5. Patient will be admitted to telemetry observation for further cardiac workup. Spoke with Dr. Alba for admission and called cardio consult to Dr. Garsia. Discharge - Discharge Information Problems reviewed: Yes Clinical Impression/Diagnosis: Chest pain Qualifiers: Chest pain type: unspecified Qualified Code(s): R07.9 - Chest pain, unspecified Condition: Stable - Admission Yes - Follow up/Referral - Patient Discharge Instructions - Post Discharge Activity
--- NOTE | 2020-03-29 12:01 | PDOC ---
Documentation entered by Anat Sigala SCRIBE, acting as scribe for Tarun Casas MD. Tarun Casas MD: This documentation has been prepared by the rayshawnibJovon zavala Ana, SCRIBE, under my direction and personally reviewed by me in its entirety. I confirm that the documentation accurately reflects all work, treatment, procedures, and medical decision making performed by me. Attending Attestation - Resident Resident Name: Mike Barrow - ED Attending Attestation I have performed the following: I have examined & evaluated the patient, The case was reviewed & discussed with the resident, I agree w/resident's findings & plan, Exceptions are as noted - HPI HPI: 03/29/20 11:01 Patient is an 84 y/o M with a significant past medical history of hypertension, prostate cancer, and smoking, who presents to the ED with chest tightness x3 days. Patient stated that he regularly goes on walks but that the last few times he has gone, he has felt SOB and chest tightness. Patient describes the chest tightness as being located in the mid sternal area, that it does not move, and that it gets better when he rests. Patient denies: syncope, nausea, vomiting, PND, orthopnea, lower extremity edema, or any other related symptoms. Allergies: NKDA - Physicial Exam PE: 03/29/20 11:02 See resident exam. - Medical Decision Making 03/29/20 12:02 84 M with exertional chest tightness and SOB. EKG with no acute ischemic changes but will need to r/o ACS. Lungs clear, no evidence of ashtma/COPD. - Labs, trop, BNP - CXR - Admit tele Discharge - Discharge Information Problems reviewed: Yes Clinical Impression/Diagnosis: SOB (shortness of breath), SANTIAGO (dyspnea on exertion) Chest pain Qualifiers: Chest pain type: unspecified Qualified Code(s): R07.9 - Chest pain, unspecified Condition: Fair Disposition: HOME - Follow up/Referral - Patient Discharge Instructions - Post Discharge Activity
[2020-03-29 12:11] LABS: BASO % 0.4 % (0-2.0); EOS % 0.5 % (0-4.5); HEMATOCRIT 42.4 % (35.4-49); HEMOGLOBIN 14.2 GM/dL (11.7-16.9); LYMPH % 14.7 % (8-40); MCH 30.5 pg (25.7-33.7); MCHC 33.5 g/dl (32.0-35.9); MEAN PLT VOLUME 8.5 fl (7.5-11.1); MONO % 10.9 % (3.8-10.2); NEUT % 73.5 % (42.8-82.8); PLATELET COUNT 217 K/MM3 (134-434); RBC 4.66 M/mm3 (4.00-5.60); RDW 13.1 % (11.9-15.9)
[2020-03-29 12:47] LABS: ALBUMIN 3.8 g/dl (3.4-5.0); ALK PHOS 88 U/L (45-117); ANION GAP 5 MMOL/L (8-16); BILIRUBIN,TOTAL 0.4 mg/dL (0.2-1); BLOOD UREA NITROGEN 14.9 mg/dL (7-18); CALCIUM 9.5 mg/dL (8.5-10.1); CHLORIDE 105 mmol/L (98-107); CO2 29 mmol/L (21-32); CREATININE 0.9 mg/dL (0.55-1.3); GLUCOSE,RANDOM 99 mg/dL (74-106); N-TERMINAL BNP 181.8 pg/ml (5-450); POTASSIUM 4.8 mmol/L (3.5-5.1); SGOT/AST 16 U/L (15-37); SGPT/ALT 19 U/L (13-61); SODIUM 139 mmol/L (136-145)
--- NOTE | 2020-03-29 16:08 | EKG ---
Test Reason : Blood Pressure : / mmHG Vent. Rate : 078 BPM Atrial Rate : 078 BPM P-R Int : 198 ms QRS Dur : 134 ms QT Int : 402 ms P-R-T Axes : 058 -64 058 degrees QTc Int : 458 ms NORMAL SINUS RHYTHM RIGHT BUNDLE BRANCH BLOCK LEFT ANTERIOR FASCICULAR BLOCK BIFASCICULAR BLOCK SEPTAL INFARCT , AGE UNDETERMINED ABNORMAL ECG WHEN COMPARED WITH ECG OF 28-NOV-2017 15:36, NO SIGNIFICANT CHANGE WAS FOUND Confirmed by LARA BRITO MD ([id number]) on 03/29/2020 4:07:56 PM Referred By: Confirmed By:LARA BRITO MD
[2020-03-29] MEDS ORDERED: clonazePAM 0.5 MG TABLET PO PRN (16:37)
--- NOTE | 2020-03-29 16:45 | HP ---
Admitting History and Physical - Primary Care Physician PCP: Fabián Alba - Admission Chief Complaint: "chest thickening" History of Present Illness: noted chests "thickening" in the past 3 days, started after walking outside, then happened at night lasting for long time came to er worried about heart attack no associated dyspnea, chest heaviness, cough, diaphoresis, fever, chills History Source: Patient Limitations to Obtaining History: No Limitations - Past Medical History Cardiovascular: Yes: HTN (hypertensive in ER yesterday, not since.), Other (card.cath after abnormal stress test~2015 no obstructive heart disease) Pulmonary: Yes: COPD Renal/: Yes: Other (Prostate ca s/p seeds green light laser for urinary retention ) Psych: Yes: Anxiety - Smoking History Smoking history: Never smoked Have you smoked in the past 12 months: No Aproximately how many cigarettes per day: 0 If you are a former smoker, when did you quit?: 1979 - Alcohol/Substance Use Hx Alcohol Use: No - Social History ADL: Independent History of Recent Travel: No Home Medications - Allergies Allergies/Adverse Reactions: Allergies Allergy/AdvReac Type Severity Reaction Status Date / Time No Known Allergies Allergy Verified 03/29/20 10:43 - Home Medications Home Medications: Ambulatory Orders Lisinopril [Prinivil] 10 mg PO DAILY 09/27/19 Atorvastatin Calcium [Lipitor] 10 mg PO HS 03/29/20 Clonazepam 1 mg PO DAILY 03/29/20 Aspirin [ASA -] 81 mg PO DAILY tab.chew 03/30/20 Review of Systems - Review of Systems Constitutional: reports: No Symptoms Eyes: reports: No Symptoms HENT: reports: No Symptoms Neck: reports: No Symptoms Cardiovascular: reports: Chest Pain. denies: Palpitations, Shortness of Breath Respiratory: denies: Cough, Exercise Intolerance, Hemoptysis, Orthopnea, SOB, SOB on Exertion Gastrointestinal: reports: No Symptoms Genitourinary: reports: No Symptoms Breasts: reports: No Symptoms Reported Musculoskeletal: reports: Back Pain Integumentary: reports: No Symptoms Psychiatric: reports: Anxiety (chronic) Physical Examination Vital Signs: Vital Signs Temperature 97.7 F 03/29/20 10:43 Pulse Rate 79 03/29/20 14:32 Respiratory Rate 24 H 03/29/20 14:32 Blood Pressure 119/85 03/29/20 14:32 O2 Sat by Pulse Oximetry (%) 96 03/29/20 14:32 Constitutional: Yes: Well Nourished, Calm, Thin Eyes: Yes: Conjunctiva Clear, EOM Intact HENT: Yes: Normocephalic Neck: Yes: Supple, Trachea Midline Cardiovascular: Yes: Regular Rate and Rhythm, Murmur. No: JVD, Gallop Respiratory: Yes: CTA Bilaterally Gastrointestinal: Yes: Normal Bowel Sounds, Soft Renal/: Yes: WNL Musculoskeletal: Yes: WNL Extremities: Yes: WNL Edema: No Integumentary: Yes: WNL Neurological: Yes: WNL Labs: CBC, BMP 03/29/20 12:00 03/29/20 12:00 first set of cardiac enzymes is negative Problem List - Problems (1) Anxiety Code(s): F41.9 - ANXIETY DISORDER, UNSPECIFIED (2) Chest pain Code(s): R07.9 - CHEST PAIN, UNSPECIFIED Qualifiers: Chest pain type: unspecified Qualified Code(s): R07.9 - Chest pain, unspecified Assessment/Plan serial cardiac enzymes and echo requested cardiology evaluation observe overnight with telemetry ro unstable angina
[2020-03-29] MEDS ORDERED: LIDOCAINE 5% TOPICAL PATCH TP ONE (18:02)
--- NOTE | 2020-03-29 18:16 | CON.CARD ---
Consult Consult Specialty:: Cardiology Referred by:: Alie Frausto Reason for Consultation:: Cardiac evaluation - History of Present Illness Chief Complaint: Chest discomfort History of Present Illness: Patient is an 84 year old male with underlying history of HTN, prostate CA s/p radiation seed implant who presents with chest discomfort described as "stiffening and tightness". He denies radiation of discomfort. He complains of intermittent shortness of breath. He denies PND or orthopnea. He denies fever or chills. He denies headache or lightheadedness. He denies nausea, vomiting, diarrhea or abdominal pain. - History Source History Provided By: Patient, Medical Record Limitations to Obtaining History: No Limitations - Past Medical History Cardio/Vascular: Yes: HTN (hypertensive in ER yesterday, not since.), Other (cardic cath after abnormal stress test~2015 no obstructive heart disease) Pulmonary: Yes: COPD Renal/: Yes: Other (Prostate ca s/p radiation seed green light laser for urinary retention 08/2019) Psych: Yes: Anxiety - Alcohol/Substance Use Hx Alcohol Use: No - Smoking History Smoking history: Former smoker Have you smoked in the past 12 months: No Aproximately how many cigarettes per day: 0 If you are a former smoker, when did you quit?: 1979 - Social History ADL: Independent History of Recent Travel: No Home Medications - Allergies Allergies/Adverse Reactions: Allergies Allergy/AdvReac Type Severity Reaction Status Date / Time No Known Allergies Allergy Verified 03/29/20 10:43 - Home Medications Home Medications: Ambulatory Orders Lisinopril [Prinivil] 10 mg PO DAILY 09/27/19 Atorvastatin Calcium [Lipitor] 10 mg PO HS 03/29/20 Clonazepam 1 mg PO DAILY 03/29/20 Review of Systems - Review of Systems Constitutional: denies: Chills, Fever Cardiovascular: reports: Chest Pain, Shortness of Breath. denies: Palpitations Respiratory: reports: SOB. denies: Cough, Hemoptysis, Orthopnea, PND, SOB on Exertion, Wheezing Gastrointestinal: denies: Abdominal Pain, Constipation, Diarrhea, Melena, Nausea, Rectal Bleeding, Vomiting Genitourinary: denies: Dysuria, Hematuria Musculoskeletal: denies: Back Pain, Joint Pain Neurological: denies: Dizziness, Headache, Seizure, Syncope Vital Signs: Vital Signs Temperature 97.7 F 03/29/20 10:43 Pulse Rate 79 03/29/20 14:32 Respiratory Rate 18 03/29/20 16:37 Blood Pressure 128/63 03/29/20 16:37 O2 Sat by Pulse Oximetry (%) 96 03/29/20 16:37 Eyes: Yes: PERRL HENT: Yes: Atraumatic Neck: Yes: Supple Respiratory: Yes: CTA Bilaterally Gastrointestinal: Yes: Normal Bowel Sounds, Soft. No: Tenderness Cardiovascular: Yes: Regular Rate and Rhythm JVD: No PMI: Non-Displaced Heart Sounds: Yes: S1, S2. No: Gallop Murmur: No: Systolic Murmur Edema: No - Other Data Labs, Other Data: CBC, BMP 03/29/20 12:00 03/29/20 12:00 Troponin, BNP 03/29/20 12:00 Troponin I < 0.02 B-Natriuretic Peptide 181.8 Laboratory Results - last 24 hr 03/29/20 03/29/20 12:00 12:00 WBC 7.0 RBC 4.66 Hgb 14.2 Hct 42.4 D MCV 91.0 MCH 30.5 MCHC 33.5 RDW 13.1 Plt Count 217 MPV 8.5 Absolute Neuts (auto) 5.1 Neutrophils % 73.5 Lymphocytes % 14.7 Monocytes % 10.9 H Eosinophils % 0.5 Basophils % 0.4 Nucleated RBC % 0 Sodium 139 Potassium 4.8 Chloride 105 Carbon Dioxide 29 Anion Gap 5 L BUN 14.9 Creatinine 0.9 Est GFR (CKD-EPI)AfAm 91.86 Est GFR (CKD-EPI)NonAf 79.26 Random Glucose 99 Calcium 9.5 Total Bilirubin 0.4 AST 16 ALT 19 Alkaline Phosphatase 88 Creatine Kinase 51 Troponin I < 0.02 B-Natriuretic Peptide 181.8 Total Protein 7.0 Albumin 3.8 Normal sinus rhythm with RBBB, septal infarct Imaging - Results Chest X-ray: Report Reviewed (No acute pathology) EKG: Report Reviewed Problem List - Problems (1) Chest pain Code(s): R07.9 - CHEST PAIN, UNSPECIFIED (2) Hyperlipidemia Code(s): E78.5 - HYPERLIPIDEMIA, UNSPECIFIED Qualifiers: Hyperlipidemia type: pure hypercholesterolemia Qualified Code(s): E78.00 - Pure hypercholesterolemia, unspecified; E78.0 - Pure hypercholesterolemia (3) Hypertension Code(s): I10 - ESSENTIAL (PRIMARY) HYPERTENSION Qualifiers: Hypertension type: essential hypertension Qualified Code(s): I10 - E ssential (primary) hypertension (4) Shortness of breath Code(s): R06.02 - SHORTNESS OF BREATH Assessment/Plan 1. Chest pain and SOB 2. HTN 3. Hypercholesterolemia PLAN: 1. Trend troponin, if negative x 3 sets, further cardiac evaluation can be done as outpatient including echocardiography and stress testing 2. Continue Lisinopril 10 mg QD 3. Continue Atorvastatin 10 mg QHS 4. Add ASA 81 mg QD Mauri Garsia MD
[2020-03-29 19:25] VITALS: BMI 22.8
[2020-03-29] MEDS ORDERED: PNEUMOC 13-VAL CONJ-DIP CRM/PF 0.5 ML DISP.SYRIN IM ONE (19:26)
[2020-03-29] MEDS ORDERED: ATORVASTATIN CA 10 MG TABLET (FP) PO SCH (22:00)
[2020-03-29] MEDS ORDERED: LIDOCAINE PATCH REMOVAL MC SCH (22:00)
--- NOTE | 2020-03-30 06:25 | PN ---
Progress Note (short form) - Note Progress Note: Patient's primary window decorator is Dr. Huang Moreno, who will be assuming care Shahab Langston MD
[2020-03-30 09:26] VITALS: BP 134/76; PULSE 66; TEMP 98
[2020-03-30] MEDS ORDERED: ASPIRIN 81 MG CHEWABLE TABLETS PO SCH (10:00)
[2020-03-30] MEDS ORDERED: LISINOPRIL 10 MG TABLET (FP) PO SCH (10:00)
--- NOTE | 2020-03-30 10:51 | ECHO ---
Version: 1 Name: QASIM ORLANDO Exam: Adult Echocardiogram Study Date: 03/30/2020, 9:38 AM Age: 84 Years MMode/2D Measurements & Calculations IVSd: 0.85 cm LVIDs: 3.0 cm LVIDd: 4.4 cm LVPWd: 0.85 cm ACS: 1.41 cm Ao root diam: 2.5 cm LVOT diam: 2.40 cm LA dimension: 3.1 cm Doppler Measurements & Calculations MV E max jamal: 60.7 cm/sec Med E/e': 8.7 MV A max jamal: 84.4 cm/sec Med Peak E' Jamal: 7.0 cm/sec MV E/A: 0.72 Lat E/e': 8.5 Lat Peak E' Jamal: 7.1 cm/sec Ao max P.0 mmHg RUBA(I,D): 2.8 cm Ao mean P.0 mmHg LV V1 mean: 53.3 cm/sec Ao V2 max: 141.2 cm/sec LV V1 mean P.29 mmHg TR max jamal: 209.0 cm/sec TR max P.6 mmHg Left Ventricle The left ventricular size, thickness and function are normal. EF 60%. Abnormal diastolic relaxation (Grade 1). Right Ventricle The right ventricle is normal in size and function. Atria Normal left and right atrial size and function. Mitral Valve The mitral valve is normal in structure and function. Tricuspid Valve The tricuspid valve is normal in structure and function. Mild TV, PASP 25 mmHg. 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 Pulmonic Valve The pulmonic valve is normal in structure and function. Great Vessels The aortic root is normal size. Pericardium/Pleura There is no pericardial effusion. Summary Statements The left ventricular size, thickness and function are normal EF 60% Abnormal diastolic relaxation (Grade 1) The right ventricle is normal in size and function. Normal left and right atrial size and function. The mitral valve is normal in structure and function. The tricuspid valve is normal in structure and function. 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
--- NOTE | 2020-03-30 11:45 | DS ---
Physical Examination Vital Signs: Vital Signs Temperature 98 F 03/30/20 09:24 Pulse Rate 66 03/30/20 09:24 Respiratory Rate 18 03/30/20 09:24 Blood Pressure 134/76 03/30/20 09:24 O2 Sat by Pulse Oximetry (%) 98 03/30/20 09:24 Constitutional: Yes: Well Nourished, Calm Eyes: Yes: Conjunctiva Clear, EOM Intact HENT: Yes: Normocephalic Cardiovascular: Yes: Regular Rate and Rhythm Respiratory: Yes: CTA Bilaterally Gastrointestinal: Yes: Normal Bowel Sounds, Soft Edema: No Peripheral Pulses WNL: Yes Neurological: Yes: WNL Psychiatric: Yes: WNL Labs: CBC, BMP 03/29/20 12:00 03/29/20 12:00 cardiac enzymes negative x3 echo reviewed good lvsf, no regional wall motion artifact diastolic dysfunction present Discharge Summary Problems reviewed: Yes Reason For Visit: CHEST PAIN Current Active Problems Anxiety (Acute) Chest pain (Acute) Shortness of breath (Acute) Hospital Course: admitted for atypical chest pain serial cardiac enzymes and echo is essentially unremarkable offers no compalints medically stable to [facility] for outpatient cardiac and medical follow up Condition: Fair - Instructions Referrals: Huang Moreno MD [Staff Physician] - Fabián Alba MD [Primary Care Provider] - Disposition: HOME - Home Medications Comprehensive Discharge Medication List: Ambulatory Orders Lisinopril [Prinivil] 10 mg PO DAILY 09/27/19 Atorvastatin Calcium [Lipitor] 10 mg PO HS 03/29/20 Clonazepam 1 mg PO DAILY 03/29/20 Prescription Drug Monitoring Program (I-STOP) results: I-STOP not reviewed
--- NOTE | 2020-03-30 13:31 | PN ---
Progress Note, Physician Chief Complaint: Pt A&Ox3; OOB in chair; asymptomatic (no longer with chest discomfort). Lower back pain-->anxiety (he worries it will incapacitate him, as it has in the past). History of Present Illness: Mr. Winston is an 84 y/o white M with a significant past medical history of chest pain (non-obstructive CAD on [address]), hypertension, prostate cancer, anxiety, chronic lower back pain, and smoking (quit 35 yrs ago), who presents to the ED with chest tightness x3 days. Patient stated that he regularly goes on walks but that the last few times he has gone, he has felt SOB and chest tightness. Patient describes the chest tightness as being located in the mid sternal area, that it does not move, and that it gets better when he rests. Patient denies: syncope, nausea, vomiting, PND, orthopnea, lower extremity edema, or any other related symptoms. Allergies: NKDA - Current Medication List Current Medications: Active Medications Aspirin (Asa -) 81 mg PO DAILY [facility] Last Admin: 03/30/20 09:10 Dose: 81 mg Documented by: Atorvastatin Calcium (Lipitor -) 10 mg PO HS [facility] Last Admin: 03/29/20 21:54 Dose: 10 mg Documented by: Clonazepam (Klonopin -) 1 mg PO Q12H PRN PRN Reason: ANXIETY Last Admin: 03/30/20 09:10 Dose: 1 mg Documented by: Lisinopril (Prinivil) 10 mg PO DAILY [facility] Last Admin: 03/30/20 09:10 Dose: 10 mg Documented by: Miscellaneous (Lidoderm Patch Removal) 1 each MC DAILY@2200 [facility] Last Admin: 03/29/20 21:58 Dose: Not Given Documented by: Pneumococcal 13-Valent Conj Vacc (Prevnar 13 Syringe -) 0.5 ml IM .ONCE ONE Stop: 03/29/20 19:27 - Objective Vital Signs: Vital Signs Temperature 98 F 03/30/20 09:24 Pulse Rate 66 03/30/20 09:24 Respiratory Rate 18 03/30/20 09:24 Blood Pressure 134/76 03/30/20 09:24 O2 Sat by Pulse Oximetry (%) 98 03/30/20 09:24 Constitutional: Yes: Anxious Eyes: Yes: WNL HENT: Yes: WNL Neck: Yes: WNL Cardiovascular: Yes: Murmur (2/6 PAUL, RSB-->apex), S1 (decreased in intensity), S2 (split) Respiratory: Yes: Diminished Gastrointestinal: Yes: Soft ...Rectal Exam: Yes: Deferred Genitourinary: No: Anuria Musculoskeletal: Yes: Back Pain Extremities: Yes: Cool Edema: No Peripheral Pulses WNL: Yes Neurological: Yes: Alert, Oriented Psychiatric: Yes: Alert, Oriented, Other (anxiety) Labs: CBC, BMP 03/29/20 12:00 03/29/20 12:00 - ....Imaging Chest X-ray: Image Reviewed EKG: Image Reviewed Assessment/Plan atypical chest pain TNI < 0.02 x 3 ECG: NSR; bifascicular block ECHO: normal LVEF; 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 COPD HLD Plan: F/u Lipids (on statin) and TSH. Pt for followup as outpatient for stress treadmill test.
[2020-03-31 09:37] LABS: CHOLESTEROL 119 mg/dL (50-200); HDL CHOLESTEROL 40 mg/dL (40-60); LDL CHOLESTEROL (ONLY SJRH) 62 mg/dL (5-100); TRIGLYCERIDES 138 mg/dL (0-150)
== END 2020-03-30 14:12 | disposition home or self-care (01) ==
LOC: JER 10:34 → JERBED 14:27 → J4S 18:23
PROVIDERS: ADMIT Internal Medicine; ATTEND Internal Medicine
DX: I25.119 Atherosclerotic heart disease of native coronary artery with unspecified angina pectoris (principal); I11.9 Hypertensive heart disease without heart failure; R01.1 Cardiac murmur, unspecified; R07.9 Chest pain, unspecified; F41.9 Anxiety disorder, unspecified; M54.5 Low back pain; G89.29 Other chronic pain; Z87.891 Personal history of nicotine dependence; Z85.46 Personal history of malignant neoplasm of prostate
CPT/HCPCS: 36415; 71045-TC-FY; 80053; 80061; 82550; 83721; 83880; 84443; 84484; 85025; 93005; 93010; 93306-TC; 99285-25; G0378; U0003

== ENCOUNTER 2021-04-18 12:34 | Emergency (ER) | payer OTHER ==
[2021-04-18 13:20] VITALS: BP 136/68; PULSE 74; TEMP 97.3; BMI 22.1
[2021-04-18 14:09] LABS: URINE APPEARANCE CLEAR; URINE BILIRUBIN NEGATIVE (NEGATIVE); URINE COLOR YELLOW; URINE GLUCOSE (UA) NEGATIVE (NEGATIVE); URINE KETONE NEGATIVE (NEGATIVE); URINE LEUK ESTERASE NEGATIVE (NEGATIVE); URINE NITRITE NEGATIVE (NEGATIVE); URINE PROTEIN NEGATIVE (NEGATIVE)
== END 2021-04-18 18:19 | disposition home or self-care (01) ==
LOC: JERFT 12:34
DX: R30.0 Dysuria (principal)
CPT/HCPCS: 76856-TC; 81003; 87086; 99284-25

== ENCOUNTER 2021-05-12 11:12 | Emergency (ER) | payer OTHER ==
[2021-05-12 11:55] VITALS: TEMP 97.8; BMI 21.5
[2021-05-12 13:09] LABS: BASO % 0.3 % (0-2.0); EOS % 0.4 % (0-4.5); HEMOGLOBIN 13.6 GM/dL (11.7-16.9); MCH 30.9 pg (25.7-33.7); MEAN CELL VOLUME 90.9 fl (80-96); MONO % 8.9 % (3.8-10.2); NEUT % 77.4 % (42.8-82.8); PLATELET COUNT 218 10^3/uL (134-434); RDW 13.2 % (11.9-15.9); WHITE BLOOD COUNT 5.8 K/mm3 (4.0-10.0)
[2021-05-12 13:11] LABS: URINE APPEARANCE CLEAR; URINE BILIRUBIN NEGATIVE (NEGATIVE); URINE COLOR YELLOW; URINE GLUCOSE (UA) NEGATIVE (NEGATIVE); URINE KETONE NEGATIVE (NEGATIVE); URINE LEUK ESTERASE NEGATIVE (NEGATIVE); URINE NITRITE NEGATIVE (NEGATIVE); URINE PROTEIN NEGATIVE (NEGATIVE); URINE UROBILINOGEN 0.2 mg/dL (0.2-1.0)
[2021-05-12 14:13] LABS: ARTERIAL BLD GAS O2 SATURATION 96.3 % (95-98); ARTERIAL BLOOD GAS BASE EXCESS -2.9 mmol/L (-2-2); ARTERIAL BLOOD GAS PO2 83.9 mmHg (80-100); ARTERIAL BLOOD GAS pH 7.392 (7.350-7.450)
[2021-05-12 14:15] LABS: ALLENS TEST POSITIVE
[2021-05-12 15:50] VITALS: BP 125/77; PULSE 66
== END 2021-05-12 15:50 | disposition home or self-care (01) ==
LOC: JER 11:12
DX: R42 Dizziness and giddiness (principal)
CPT/HCPCS: 36415; 36600; 71045-TC-FY; 81003; 82375; 82550; 82803; 84443; 84484; 85025; 87086; 93005; 93010; 99285-25; C9803; U0003; U0005

== ENCOUNTER 2021-06-15 11:52 | Observation (INO) | payer OTHER ==
[2021-06-15] MEDS ORDERED: ASPIRIN 81 MG CHEWABLE TABLETS PO ONE (12:25)
[2021-06-15] MEDS ORDERED: NITROGLYCERIN 2% OINTMENT - 1GM PACKET TD ONE ×2 (12:26→12:34)
[2021-06-15] MEDS ORDERED: FAMOTIDINE 20 MG/50 ML IVPB 20 MG/50 ML MG IVPB ONE ×2 (12:29→12:34)
[2021-06-15] MEDS ORDERED: ASPIRIN 81 MG CHEWABLE TABLETS ONE (12:34)
[2021-06-15 13:05] LABS: BASO % 0.5 % (0-2.0); EOS % 1.2 % (0-4.5); HEMOGLOBIN 13.5 GM/dL (11.7-16.9); LYMPH % 17.3 % (8-40); MCHC 33.9 g/dl (32.0-35.9); MEAN CELL VOLUME 91.6 fl (80-96); MEAN PLT VOLUME 8.6 fl (7.5-11.1); MONO % 8.7 % (3.8-10.2); NEUT % 72.3 % (42.8-82.8); PLATELET COUNT 212 10^3/uL (134-434); RBC 4.36 M/mm3 (4.00-5.60); RDW 13.6 % (11.9-15.9); WHITE BLOOD COUNT 6.3 K/mm3 (4.0-10.0)
[2021-06-15 13:24] LABS: CHLORIDE 102 mmol/L (98-107); SODIUM 137 mmol/L (136-145)
[2021-06-15 13:26] LABS: CALCIUM 9.5 mg/dL (8.5-10.1)
[2021-06-15 13:27] LABS: ALBUMIN 3.9 g/dl (3.4-5.0); ANION GAP 6 MMOL/L (8-16); CO2 29 mmol/L (21-32); GLUCOSE,RANDOM 141 mg/dL (74-106); MAGNESIUM 2.7 mg/dL (1.8-2.4)
[2021-06-15 13:30] LABS: SGOT/AST 14 U/L (15-37); SGPT/ALT 20 U/L (13-61)
[2021-06-15 13:31] LABS: BILIRUBIN,TOTAL 0.6 mg/dL (0.2-1); TOT PROT 6.8 g/dl (6.4-8.2)
[2021-06-15 13:33] LABS: ALK PHOS 72 U/L (45-117)
[2021-06-15 18:11] VITALS: BMI 21.1
[2021-06-15] MEDS: LIDOCAINE 5% TOPICAL PATCH TP SCH (19:45)
[2021-06-15] MEDS ORDERED: ATORVASTATIN CA 10 MG TABLET (FP) PO SCH (22:00)
[2021-06-15] MEDS ORDERED: clonazePAM 0.5 MG TABLET PO SCH (22:00)
[2021-06-15] MEDS ORDERED: LIDOCAINE PATCH REMOVAL MC SCH (22:00)
[2021-06-16] MEDS ORDERED: ACETAMINOPHEN 325 MG TABLET (FP) PO ONE (08:15)
[2021-06-16] MEDS ORDERED: ACETAMINOPHEN 325 MG TABLET (FP) PO PRN (08:23)
[2021-06-16] MEDS ORDERED: clonazePAM 0.5 MG TABLET PO SCH (08:45)
[2021-06-16] MEDS: LISINOPRIL 10 MG TABLET PO SCH ×2 (08:58→11:04)
[2021-06-16] MEDS: LIDOCAINE 5% TOPICAL PATCH TP SCH (08:59)
[2021-06-16 09:49] LABS: HEMATOCRIT 41.7 % (35.4-49); HEMOGLOBIN 14.6 GM/dL (11.7-16.9); MCH 31.5 pg (25.7-33.7); MCHC 34.9 g/dl (32.0-35.9); MEAN CELL VOLUME 90.2 fl (80-96); MEAN PLT VOLUME 8.5 fl (7.5-11.1); PLATELET COUNT 240 10^3/uL (134-434); RBC 4.63 M/mm3 (4.00-5.60); RDW 13.5 % (11.9-15.9); WHITE BLOOD COUNT 5.5 K/mm3 (4.0-10.0)
[2021-06-16] MEDS ORDERED: ASPIRIN 81 MG CHEWABLE TABLETS PO SCH (10:00)
[2021-06-16] MEDS ORDERED: DULoxetine HCL 30 MG CAPSULE.DR PO SCH (10:00)
[2021-06-16 10:05] LABS: CHLORIDE 105 mmol/L (98-107); SODIUM 138 mmol/L (136-145)
[2021-06-16 10:13] LABS: BLOOD UREA NITROGEN 19.5 mg/dL (7-18)
[2021-06-16 10:15] LABS: BILIRUBIN,TOTAL 0.4 mg/dL (0.2-1)
[2021-06-16 10:16] LABS: ALK PHOS 74 U/L (45-117); SGPT/ALT 20 U/L (13-61)
[2021-06-16 10:17] LABS: ANION GAP 2 MMOL/L (8-16); CALCIUM 9.6 mg/dL (8.5-10.1); CO2 31 mmol/L (21-32); CREATININE 0.9 mg/dL (0.55-1.3)
[2021-06-16 10:18] LABS: CHOLESTEROL 153 mg/dL (50-200); GLUCOSE,RANDOM 94 mg/dL (74-106); SGOT/AST 14 U/L (15-37); TRIGLYCERIDES 186 mg/dL (0-150)
[2021-06-16 10:21] LABS: HDL CHOLESTEROL 44 mg/dL (40-60)
[2021-06-16 10:26] LABS: N-TERMINAL BNP 147.6 pg/ml (5-450)
[2021-06-16 10:30] LABS: LDL CHOLESTEROL (ONLY SJRH) 75 mg/dL (5-100)
[2021-06-16 15:30] VITALS: BP 127/57; PULSE 84; TEMP 97.4
== END 2021-06-16 19:00 | disposition home or self-care (01) ==
LOC: JER 11:52 → JERBED 14:10 → INTOOBSV 14:10 → J4W 17:44
PROVIDERS: ADMIT Internal Medicine; ATTEND Internal Medicine
PROC: 3E033GC Introduction of Other Therapeutic Substance into Peripheral Vein, Percutaneous Approach (ICD-10-PCS; principal; 2021-06-15)
DX: R07.89 Other chest pain (principal); R07.9 Chest pain, unspecified; E78.5 Hyperlipidemia, unspecified; I10 Essential (primary) hypertension; F32.9 Major depressive disorder, single episode, unspecified; Z85.46 Personal history of malignant neoplasm of prostate; G89.29 Other chronic pain; Z87.891 Personal history of nicotine dependence; F41.8 Other specified anxiety disorders; M51.36 Other intervertebral disc degeneration, lumbar region; J44.9 Chronic obstructive pulmonary disease, unspecified
CPT/HCPCS: 36415; 71045-TC-FY; 78452-TC; 80053; 80061; 82550; 83036; 83735; 83880; 84484; 85025; 85027; 93005; 93010; 93017; 93306-TC; 96365; 99285-25; A9502; C9803; G0378; U0003; U0005

== ENCOUNTER 2021-07-29 16:10 | Inpatient (IN) | payer OTHER ==
[2021-07-29] MEDS ORDERED: ASPIRIN 81 MG CHEWABLE TABLETS PO ONE (16:49)
[2021-07-29] MEDS ORDERED: ACETAMINOPHEN 1000 MG/100 ML BAG IVPB ONE (16:50)
[2021-07-29] MEDS ORDERED: SODIUM CHLORIDE 0.9% 500 ML INFUS.BAG IV ONE (16:50)
[2021-07-29] MEDS ORDERED: ACETAMINOPHEN INJECTION 100 ML IVPB ONE (17:13)
[2021-07-29] MEDS ORDERED: ASPIRIN COATED 81 MG TABLET.EC ONE (17:13)
[2021-07-29 18:00] LABS: BASO % 0.4 % (0-2.0); EOS % 0.3 % (0-4.5); HEMATOCRIT 39.8 % (35.4-49); HEMOGLOBIN 13.5 GM/dL (11.7-16.9); LYMPH % 32.1 % (8-40); MCH 30.8 pg (25.7-33.7); MCHC 33.8 g/dl (32.0-35.9); MEAN PLT VOLUME 9.3 fl (7.5-11.1); NEUT % 53.2 % (42.8-82.8); PLATELET COUNT 168 10^3/uL (134-434); RBC 4.38 M/mm3 (4.00-5.60); RDW 13.2 % (11.9-15.9); WHITE BLOOD COUNT 3.7 K/mm3 (4.0-10.0)
[2021-07-29 18:19] LABS: CHLORIDE 105 mmol/L (98-107); SODIUM 139 mmol/L (136-145)
[2021-07-29 18:21] LABS: ALBUMIN 3.2 g/dl (3.4-5.0)
[2021-07-29 18:22] LABS: ANION GAP 7 MMOL/L (8-16); BLOOD UREA NITROGEN 19.6 mg/dL (7-18); CO2 27 mmol/L (21-32); GLUCOSE,RANDOM 93 mg/dL (74-106)
[2021-07-29 18:24] LABS: SGPT/ALT 24 U/L (13-61)
[2021-07-29 18:25] LABS: CREATININE 0.8 mg/dL (0.55-1.3); SGOT/AST 19 U/L (15-37)
[2021-07-29 18:26] LABS: BILIRUBIN,TOTAL 0.4 mg/dL (0.2-1); TOT PROT 6.4 g/dl (6.4-8.2)
[2021-07-29 18:28] LABS: ALK PHOS 76 U/L (45-117)
[2021-07-29] MEDS: LIDOCAINE PATCH REMOVAL MC SCH (22:00)
[2021-07-30 03:27] VITALS: BMI 21.6
[2021-07-30] MEDS ORDERED: DEXAMETHASONE SOD PHOSPHATE 4 MG/1 ML VIAL IVPUSH ONE (06:13)
[2021-07-30] MEDS ORDERED: ALBUTEROL SO4 HFA INHALER IH PRN (06:14)
[2021-07-30 07:20] LABS: BASO % 0.7 % (0-2.0); EOS % 0.9 % (0-4.5); HEMATOCRIT 40.1 % (35.4-49); HEMOGLOBIN 13.8 GM/dL (11.7-16.9); LYMPH % 29.4 % (8-40); MCH 31.1 pg (25.7-33.7); MCHC 34.3 g/dl (32.0-35.9); MEAN CELL VOLUME 90.8 fl (80-96); MONO % 15.3 % (3.8-10.2); NEUT % 53.7 % (42.8-82.8); PLATELET COUNT 163 10^3/uL (134-434); RBC 4.42 M/mm3 (4.00-5.60); RDW 13.1 % (11.9-15.9); WHITE BLOOD COUNT 3.2 K/mm3 (4.0-10.0)
[2021-07-30 07:28] LABS: CHLORIDE 107 mmol/L (98-107); SODIUM 139 mmol/L (136-145)
[2021-07-30 07:30] LABS: ANION GAP 5 MMOL/L (8-16); BLOOD UREA NITROGEN 15.2 mg/dL (7-18); CALCIUM 8.6 mg/dL (8.5-10.1); CO2 27 mmol/L (21-32); GLUCOSE,RANDOM 93 mg/dL (74-106)
[2021-07-30 07:33] LABS: CREATININE 0.9 mg/dL (0.55-1.3)
[2021-07-30] MEDS ORDERED: PT OWN MED DRAWER 7, Y5N ONE (09:59)
[2021-07-30] MEDS ORDERED: ENOXAPARIN NA (PORCINE) 30 MG/0.3 ML DISP.SYRIN SQ SCH (10:00)
[2021-07-30] MEDS ORDERED: REMDESIVIR 200 MG in SODIUM CHLORIDE 250 ML IVPB ONE (10:00)
[2021-07-30] MEDS: ENOXAPARIN NA (PORCINE) 40 MG/0.4 ML DISP.SYRIN SQ SCH (10:02)
[2021-07-30] MEDS: clonazePAM 0.5 MG TABLET PO SCH ×2 (10:02→21:59)
[2021-07-30] MEDS: ASPIRIN 81 MG CHEWABLE TABLETS PO SCH (10:03)
[2021-07-30] MEDS: ASCORBIC ACID 500 MG TABLET (FP) PO SCH (10:03)
[2021-07-30] MEDS: DULoxetine HCL 30 MG CAPSULE.DR PO SCH (10:03)
[2021-07-30] MEDS: ZINC SULFATE 220 MG CAPSULE (FP) PO SCH (10:03)
[2021-07-30] MEDS: CHOLECALCIFEROL (VIT D3) 1,000 UNIT (25 MCG) TABLET PO SCH (10:03)
[2021-07-30] MEDS: LIDOCAINE 5% TOPICAL PATCH TP SCH (10:27)
[2021-07-30] MEDS: ATORVASTATIN CA 10 MG TABLET (FP) PO SCH (21:59)
[2021-07-30] MEDS: LIDOCAINE PATCH REMOVAL MC SCH (21:59)
[2021-07-31] MEDS ORDERED: PT OWN MED DRAWER 7, Y5N ONE (09:09)
[2021-07-31] MEDS: clonazePAM 0.5 MG TABLET PO SCH ×2 (09:18→21:41)
[2021-07-31] MEDS: ASPIRIN 81 MG CHEWABLE TABLETS PO SCH (09:18)
[2021-07-31] MEDS: CHOLECALCIFEROL (VIT D3) 1,000 UNIT (25 MCG) TABLET PO SCH (09:18)
[2021-07-31] MEDS: LIDOCAINE 5% TOPICAL PATCH TP SCH (09:18)
[2021-07-31] MEDS: ZINC SULFATE 220 MG CAPSULE (FP) PO SCH (09:18)
[2021-07-31] MEDS: ASCORBIC ACID 500 MG TABLET (FP) PO SCH (09:18)
[2021-07-31] MEDS: DULoxetine HCL 30 MG CAPSULE.DR PO SCH (09:18)
[2021-07-31] MEDS: ENOXAPARIN NA (PORCINE) 40 MG/0.4 ML DISP.SYRIN SQ SCH (09:18)
[2021-07-31] MEDS: DEXAMETHASONE SOD PHOSPHATE 4 MG/1 ML VIAL IVPUSH SCH (09:19)
[2021-07-31] MEDS: REMDESIVIR 100 MG in SODIUM CHLORIDE 250 ML IVPB SCH (11:12)
[2021-07-31] MEDS: ATORVASTATIN CA 10 MG TABLET (FP) PO SCH (21:41)
[2021-07-31] MEDS: LIDOCAINE PATCH REMOVAL MC SCH (21:42)
[2021-08-01 07:08] LABS: BASO % 0.1 % (0-2.0); HEMATOCRIT 37.9 % (35.4-49); LYMPH % 13.5 % (8-40); MCH 30.8 pg (25.7-33.7); MCHC 34.3 g/dl (32.0-35.9); MEAN CELL VOLUME 89.8 fl (80-96); MEAN PLT VOLUME 9.1 fl (7.5-11.1); NEUT % 75.4 % (42.8-82.8); PLATELET COUNT 190 10^3/uL (134-434); RBC 4.23 M/mm3 (4.00-5.60); RDW 13.1 % (11.9-15.9); WHITE BLOOD COUNT 6.8 K/mm3 (4.0-10.0)
[2021-08-01 07:19] LABS: ALBUMIN 2.7 g/dl (3.4-5.0); BLOOD UREA NITROGEN 27.4 mg/dL (7-18); CALCIUM 8.5 mg/dL (8.5-10.1)
[2021-08-01 07:22] LABS: CREATININE 0.7 mg/dL (0.55-1.3)
[2021-08-01 07:24] LABS: BILIRUBIN,TOTAL 0.3 mg/dL (0.2-1); TOT PROT 5.5 g/dl (6.4-8.2)
[2021-08-01] MEDS: DEXAMETHASONE SOD PHOSPHATE 4 MG/1 ML VIAL IVPUSH SCH (09:21)
[2021-08-01] MEDS: ASPIRIN 81 MG CHEWABLE TABLETS PO SCH (09:21)
[2021-08-01] MEDS: DULoxetine HCL 30 MG CAPSULE.DR PO SCH (09:21)
[2021-08-01] MEDS: ASCORBIC ACID 500 MG TABLET (FP) PO SCH (09:21)
[2021-08-01] MEDS: CHOLECALCIFEROL (VIT D3) 1,000 UNIT (25 MCG) TABLET PO SCH (09:21)
[2021-08-01] MEDS: ZINC SULFATE 220 MG CAPSULE (FP) PO SCH (09:22)
[2021-08-01] MEDS: ENOXAPARIN NA (PORCINE) 40 MG/0.4 ML DISP.SYRIN SQ SCH (09:22)
[2021-08-01] MEDS: LIDOCAINE 5% TOPICAL PATCH TP SCH (09:22)
[2021-08-01] MEDS ORDERED: PT OWN MED DRAWER 7, Y5N ONE ×2 (09:29→20:40)
[2021-08-01] MEDS: REMDESIVIR 100 MG in SODIUM CHLORIDE 250 ML IVPB SCH (09:30)
[2021-08-01] MEDS: clonazePAM 0.5 MG TABLET PO SCH ×2 (09:30→21:01)
[2021-08-01] MEDS: LIDOCAINE PATCH REMOVAL MC SCH (21:01)
[2021-08-01] MEDS: ATORVASTATIN CA 10 MG TABLET (FP) PO SCH (21:01)
[2021-08-02] MEDS ORDERED: PT OWN MED DRAWER 7, Y5N ONE ×2 (08:58→10:23)
[2021-08-02] MEDS: CHOLECALCIFEROL (VIT D3) 1,000 UNIT (25 MCG) TABLET PO SCH (09:01)
[2021-08-02] MEDS: clonazePAM 0.5 MG TABLET PO SCH ×2 (09:01→21:00)
[2021-08-02] MEDS: ENOXAPARIN NA (PORCINE) 40 MG/0.4 ML DISP.SYRIN SQ SCH (09:01)
[2021-08-02] MEDS: ASPIRIN 81 MG CHEWABLE TABLETS PO SCH (09:01)
[2021-08-02] MEDS: ASCORBIC ACID 500 MG TABLET (FP) PO SCH (09:01)
[2021-08-02] MEDS: ZINC SULFATE 220 MG CAPSULE (FP) PO SCH (09:01)
[2021-08-02] MEDS: DULoxetine HCL 30 MG CAPSULE.DR PO SCH (09:01)
[2021-08-02] MEDS: DEXAMETHASONE SOD PHOSPHATE 4 MG/1 ML VIAL IVPUSH SCH (09:02)
[2021-08-02] MEDS: LIDOCAINE 5% TOPICAL PATCH TP SCH (09:14)
[2021-08-02] MEDS ORDERED: REMDESIVIR 100 MG in SODIUM CHLORIDE 250 ML IVPB SCH (10:00)
[2021-08-02] MEDS ORDERED: POLYETHYLENE GLYCOL (HEALTHYLAX) 3350 17 GM PACKET PO ONE (17:58)
[2021-08-02] MEDS: LIDOCAINE PATCH REMOVAL MC SCH (21:00)
[2021-08-02] MEDS: ATORVASTATIN CA 10 MG TABLET (FP) PO SCH (21:00)
[2021-08-03] MEDS ORDERED: ALBUTEROL SO4 HFA INHALER IH PRN (07:43)
[2021-08-03] MEDS ORDERED: DULoxetine HCL 30 MG CAPSULE.DR PO SCH (10:00)
[2021-08-03] MEDS ORDERED: DEXAMETHASONE SOD PHOSPHATE 4 MG/1 ML VIAL IVPUSH SCH (10:00)
[2021-08-03] MEDS ORDERED: LIDOCAINE 5% TOPICAL PATCH TP SCH (10:00)
[2021-08-03] MEDS ORDERED: ENOXAPARIN NA (PORCINE) 40 MG/0.4 ML DISP.SYRIN SQ SCH (10:00)
[2021-08-03] MEDS ORDERED: ZINC SULFATE 220 MG CAPSULE (FP) PO SCH (10:00)
[2021-08-03] MEDS ORDERED: REMDESIVIR 100 MG in SODIUM CHLORIDE 250 ML IVPB SCH (10:00)
[2021-08-03] MEDS ORDERED: ASCORBIC ACID 500 MG TABLET (FP) PO SCH (10:00)
[2021-08-03] MEDS ORDERED: CHOLECALCIFEROL (VIT D3) 1,000 UNIT (25 MCG) TABLET PO SCH (10:00)
[2021-08-03] MEDS ORDERED: clonazePAM 0.5 MG TABLET PO SCH (10:00)
[2021-08-03] MEDS ORDERED: ASPIRIN 81 MG CHEWABLE TABLETS PO SCH (10:00)
[2021-08-03 14:43] VITALS: BP 117/63; PULSE 60; TEMP 98.2
[2021-08-03] MEDS ORDERED: ATORVASTATIN CA 10 MG TABLET (FP) PO SCH (22:00)
[2021-08-03] MEDS ORDERED: LIDOCAINE PATCH REMOVAL MC SCH (22:00)
== END 2021-08-03 15:09 | disposition home or self-care (01) | DRG 177 ==
LOC: JER 16:10 → JERBED 18:00 → J2W 07-30 03:02 → J6S 08-02 23:05
PROVIDERS: ADMIT Hospitalist; ATTEND Internal Medicine
PROC: XW033E5 Introduction of Remdesivir Anti-infective into Peripheral Vein, Percutaneous Approach, New Technology Group 5 (ICD-10-PCS; principal; 2021-07-30)
DX: U07.1 COVID-19 (principal); J12.82 Pneumonia due to coronavirus disease 2019; I45.3 Trifascicular block; M51.36 Other intervertebral disc degeneration, lumbar region; E78.5 Hyperlipidemia, unspecified; J44.9 Chronic obstructive pulmonary disease, unspecified; I10 Essential (primary) hypertension; R07.89 Other chest pain; I25.10 Atherosclerotic heart disease of native coronary artery without angina pectoris; M54.50 Low back pain, unspecified; F41.9 Anxiety disorder, unspecified; R09.02 Hypoxemia; R00.1 Bradycardia, unspecified; Z85.46 Personal history of malignant neoplasm of prostate
CPT/HCPCS: 36415; 71045-TC-FY; 80048; 80053; 82550; 82728; 84484; 85025; 86140; 87804; 87807; 93005; 93010; 94761; 97116-GP; 97162-GP; 99285-25; C9399; C9803; J0131; U0003; U0005

== ENCOUNTER 2021-11-22 10:01 | Observation (INO) | payer OTHER ==
[2021-11-22] MEDS ORDERED: ACETAMINOPHEN 1000 MG/100 ML BAG IVPB ONE (10:38)
[2021-11-22] MEDS ORDERED: SODIUM CHLORIDE 0.9% 500 ML INFUS.BAG IV ONE (10:38)
[2021-11-22] MEDS ORDERED: ACETAMINOPHEN INJECTION 100 ML IVPB ONE (10:57)
[2021-11-22 11:34] LABS: BASO % 0.7 % (0-2.0); EOS % 0.6 % (0-4.5); HEMATOCRIT 38.1 % (35.4-49); HEMOGLOBIN 13.1 GM/dL (11.7-16.9); LYMPH % 14.2 % (8-40); MCH 30.7 pg (25.7-33.7); MCHC 34.3 g/dl (32.0-35.9); MEAN CELL VOLUME 89.6 fl (80-96); MEAN PLT VOLUME 8.3 fl (7.5-11.1); MONO % 10.4 % (3.8-10.2); NEUT % 74.1 % (42.8-82.8); PLATELET COUNT 224 10^3/uL (134-434); RBC 4.25 M/mm3 (4.00-5.60); WHITE BLOOD COUNT 4.8 K/mm3 (4.0-10.0)
[2021-11-22 11:56] LABS: ALBUMIN 3.7 g/dl (3.4-5.0); CALCIUM 9.7 mg/dL (8.5-10.1)
[2021-11-22 11:57] LABS: BLOOD UREA NITROGEN 13.7 mg/dL (7-18); MAGNESIUM 2.6 mg/dL (1.8-2.4)
[2021-11-22 12:01] LABS: BILIRUBIN,TOTAL 0.5 mg/dL (0.2-1); TOT PROT 6.6 g/dl (6.4-8.2)
[2021-11-22] MEDS ORDERED: SODIUM CHLORIDE 1,000 ML IV SCH (14:15)
[2021-11-22 15:16] LABS: PH,URINE 8.5 (5.0-8.0); URINE APPEARANCE CLEAR; URINE BILIRUBIN NEGATIVE (NEGATIVE); URINE COLOR YELLOW; URINE GLUCOSE (UA) NEGATIVE (NEGATIVE); URINE KETONE NEGATIVE (NEGATIVE); URINE LEUK ESTERASE NEGATIVE (NEGATIVE); URINE NITRITE NEGATIVE (NEGATIVE); URINE PROTEIN NEGATIVE (NEGATIVE); URINE UROBILINOGEN 0.2 mg/dL (0.2-1.0)
[2021-11-22] MEDS ORDERED: DOCUSATE SODIUM 100 MG CAPSULE (FP) PO ONE ×2 (16:22→16:24)
[2021-11-22] MEDS ORDERED: ACETAMINOPHEN 325 MG TABLET (FP) PO PRN (18:15)
[2021-11-22] MEDS ORDERED: clonazePAM 0.5 MG TABLET PO ONE (19:41)
[2021-11-22] MEDS ORDERED: BISACODYL 5 MG TABLET.DR (FP) PO ONE (19:44)
[2021-11-22] MEDS ORDERED: clonazePAM 0.5 MG TABLET ONE (19:57)
[2021-11-22] MEDS ORDERED: LIDOCAINE PATCH REMOVAL MC SCH (22:00)
[2021-11-22] MEDS: clonazePAM 0.5 MG TABLET PO SCH (22:54)
[2021-11-22 23:47] VITALS: BMI 19.2
[2021-11-23 07:29] LABS: CALCIUM 9.1 mg/dL (8.5-10.1)
[2021-11-23 07:30] LABS: ALBUMIN 3.2 g/dl (3.4-5.0)
[2021-11-23 07:32] LABS: BLOOD UREA NITROGEN 11.8 mg/dL (7-18)
[2021-11-23 07:33] LABS: CREATININE 0.9 mg/dL (0.55-1.3)
[2021-11-23 07:34] LABS: BILIRUBIN,TOTAL 0.4 mg/dL (0.2-1); TOT PROT 5.9 g/dl (6.4-8.2)
[2021-11-23 07:52] LABS: HEMATOCRIT 36.5 % (35.4-49); HEMOGLOBIN 12.6 GM/dL (11.7-16.9); MCH 31.2 pg (25.7-33.7); MCHC 34.6 g/dl (32.0-35.9); MEAN CELL VOLUME 90.3 fl (80-96); MEAN PLT VOLUME 8.5 fl (7.5-11.1); PLATELET COUNT 223 10^3/uL (134-434); RBC 4.04 M/mm3 (4.00-5.60); RDW 13.3 % (11.9-15.9); WHITE BLOOD COUNT 5.4 K/mm3 (4.0-10.0)
[2021-11-23 09:20] VITALS: BP 131/59; PULSE 74; TEMP 97.7
[2021-11-23] MEDS ORDERED: LISINOPRIL 10 MG TABLET PO SCH (10:00)
[2021-11-23] MEDS ORDERED: ASPIRIN 81 MG CHEWABLE TABLETS PO SCH (10:00)
[2021-11-23] MEDS ORDERED: PARoxetine HCL 20 MG TABLET PO SCH (10:00)
[2021-11-23] MEDS ORDERED: PANTOPRAZOLE 20 MG TABLET PO SCH (10:00)
[2021-11-23] MEDS ORDERED: LIDOCAINE 5% TOPICAL PATCH TP SCH (10:00)
[2021-11-23] MEDS: clonazePAM 0.5 MG TABLET PO SCH (10:01)
== END 2021-11-23 10:54 | disposition home or self-care (01) ==
LOC: JER 10:01 → JERBED 14:58 → J4W 23:24
PROVIDERS: ADMIT Internal Medicine; ATTEND Internal Medicine
PROC: 3E033NZ Introduction of Analgesics, Hypnotics, Sedatives into Peripheral Vein, Percutaneous Approach (ICD-10-PCS; principal; 2021-11-22)
PROC: 3E0337Z Introduction of Electrolytic and Water Balance Substance into Peripheral Vein, Percutaneous Approach (ICD-10-PCS; 2021-11-22)
DX: R10.84 Generalized abdominal pain (principal); R07.9 Chest pain, unspecified; K59.09 Other constipation; G89.29 Other chronic pain; M54.59 Other low back pain; I10 Essential (primary) hypertension; F41.9 Anxiety disorder, unspecified; Z87.891 Personal history of nicotine dependence; Z85.46 Personal history of malignant neoplasm of prostate
CPT/HCPCS: 36415; 71045-TC-FY; 74174-TC; 80053; 81003; 82550; 83605; 83690; 83735; 84100; 84443; 84484; 85025; 85027; 87086; 93005; 93010; 94640; 96372; 96374; 96375; 99285-25; C9803-CS; G0378; U0003; U0005

== ENCOUNTER 2023-07-12 13:22 | Observation (INO) | payer OTHER ==
[2023-07-12] MEDS ORDERED: ACETAMINOPHEN 1000 MG/100 ML BAG IVPB ONE (14:24)
[2023-07-12 14:57] LABS: BASO % 0.6 % (0-2.0); EOS % 0.5 % (0-4.5); HEMOGLOBIN 13.8 GM/dL (11.7-16.9); MCHC 33.7 g/dl (32.0-35.9); MONO % 10.7 % (3.8-10.2); NEUT % 75.2 % (42.8-82.8); PLATELET COUNT 246 10^3/uL (134-434); RBC 4.46 M/mm3 (4.00-5.60); RDW 13.4 % (11.9-15.9); WHITE BLOOD COUNT 5.1 K/mm3 (4.0-10.0)
[2023-07-12] MEDS ORDERED: ACETAMINOPHEN INJECTION 100 ML IVPB ONE (14:59)
[2023-07-12 15:04] LABS: INR 1.06 (0.83-1.09); PROTHROMBIN TIME (PATIENT) 12.3 SEC (9.7-13.0)
[2023-07-12 15:07] LABS: ACTIVATED PTT 33.1 SECONDS (25.2-36.5)
[2023-07-12 15:16] LABS: POTASSIUM 4.4 mmol/L (3.5-5.1)
[2023-07-12 15:18] LABS: ALBUMIN 3.8 g/dl (3.4-5.0); BLOOD UREA NITROGEN 21.2 mg/dL (7-18); CALCIUM 9.2 mg/dL (8.5-10.1); MAGNESIUM 2.4 mg/dL (1.8-2.4)
[2023-07-12 15:21] LABS: CREATININE 0.8 mg/dL (0.55-1.3)
[2023-07-12 15:23] LABS: BILIRUBIN,TOTAL 0.4 mg/dL (0.2-1)
[2023-07-12 16:02] LABS: URINE APPEARANCE CLEAR; URINE BILIRUBIN NEGATIVE (NEGATIVE); URINE COLOR YELLOW; URINE GLUCOSE (UA) NEGATIVE (NEGATIVE); URINE KETONE NEGATIVE (NEGATIVE); URINE LEUK ESTERASE NEGATIVE (NEGATIVE); URINE NITRITE NEGATIVE (NEGATIVE); URINE PROTEIN NEGATIVE (NEGATIVE)
[2023-07-12] MEDS ORDERED: morphine CARPU-JECT 4 MG/1 ML DISP.SYRIN IVPUSH ONE (16:08)
[2023-07-12] MEDS ORDERED: clonazePAM 0.5 MG TABLET PO ONE (18:20)
[2023-07-12] MEDS ORDERED: clonazePAM 0.5 MG TABLET ONE (18:31)
[2023-07-12 22:16] VITALS: RESP 18
[2023-07-12 23:43] VITALS: BMI 20.4
[2023-07-13] MEDS ORDERED: ACETAMINOPHEN 325 MG TABLET (FP) PO PRN (00:35)
[2023-07-13 09:08] LABS: BASO % 0.8 % (0-2.0); EOS % 1.1 % (0-4.5); HEMATOCRIT 38.3 % (35.4-49); HEMOGLOBIN 13.1 GM/dL (11.7-16.9); LYMPH % 24.6 % (8-40); MCH 31.4 pg (25.7-33.7); MCHC 34.2 g/dl (32.0-35.9); MEAN CELL VOLUME 91.9 fl (80-96); MEAN PLT VOLUME 8.5 fl (7.5-11.1); MONO % 13.1 % (3.8-10.2); NEUT % 60.4 % (42.8-82.8); PLATELET COUNT 224 10^3/uL (134-434); RBC 4.17 M/mm3 (4.00-5.60); RDW 13.7 % (11.9-15.9); WHITE BLOOD COUNT 4.8 K/mm3 (4.0-10.0)
[2023-07-13 09:21] LABS: POTASSIUM 4.6 mmol/L (3.5-5.1)
[2023-07-13 09:29] LABS: CREATININE 0.8 mg/dL (0.55-1.3)
[2023-07-13] MEDS ORDERED: clonazePAM 0.5 MG TABLET PO PRN ×2 (09:32→10:00)
[2023-07-13] MEDS ORDERED: CELECOXIB 200 MG CAPSULE PO SCH (10:00)
[2023-07-13] MEDS ORDERED: DULoxetine HCL 30 MG CAPSULE.DR PO SCH (10:00)
[2023-07-13] MEDS ORDERED: LIDOCAINE 5% TOPICAL PATCH TP SCH (10:00)
[2023-07-13] MEDS ORDERED: LISINOPRIL 10 MG TABLET PO SCH (10:00)
[2023-07-13] MEDS ORDERED: LIDOCAINE 4% PATCH TP SCH (11:00)
[2023-07-13 18:46] VITALS: BP 115/55; PULSE 62; TEMP 98.6
[2023-07-13] MEDS ORDERED: LIDOCAINE PATCH REMOVAL MC SCH (22:00)
[2023-07-14] MEDS ORDERED: TAMSULOSIN HCL 0.4 MG CAP PO SCH (08:30)
== END 2023-07-13 18:59 | disposition home or self-care (01) ==
LOC: JER 13:22 → JERBED 21:09 → J7W 22:32
PROVIDERS: ADMIT Internal Medicine; ATTEND Internal Medicine
PROC: 3E033NZ Introduction of Analgesics, Hypnotics, Sedatives into Peripheral Vein, Percutaneous Approach (ICD-10-PCS; principal; 2023-07-12)
PROC: 3E033NZ Introduction of Analgesics, Hypnotics, Sedatives into Peripheral Vein, Percutaneous Approach (ICD-10-PCS; 2023-07-12)
DX: I25.10 Atherosclerotic heart disease of native coronary artery without angina pectoris (principal); I11.0 Hypertensive heart disease with heart failure; F41.9 Anxiety disorder, unspecified; J44.9 Chronic obstructive pulmonary disease, unspecified; E78.5 Hyperlipidemia, unspecified; Z86.16 Personal history of COVID-19; Z85.46 Personal history of malignant neoplasm of prostate; Z87.891 Personal history of nicotine dependence; M54.9 Dorsalgia, unspecified
CPT/HCPCS: 0241U-QW; 36415; 71045-TC-FY; 72128-TC; 72131-TC; 80048; 80053; 81003; 83735; 84484; 85025; 85610; 85730; 86850; 86900; 86901; 87086; 93005; 93010; 96374; 96375; 97116-GP; 97161-GP; 99285-25; G0378

== ENCOUNTER 2023-08-15 09:47 | Observation (INO) | payer OTHER ==
[2023-08-15] MEDS ORDERED: ASPIRIN 325 MG ENTERIC COATED TABLET (FP) PO ONE (10:14)
[2023-08-15] MEDS ORDERED: NITROGLYCERIN 2% OINTMENT - 1GM PACKET TD ONE ×2 (10:14→10:18)
[2023-08-15] MEDS ORDERED: ASPIRIN 81 MG CHEWABLE TABLETS ONE (10:18)
[2023-08-15 10:30] VITALS: BMI 20.7
[2023-08-15 11:04] LABS: BASO % 0.6 % (0-2.0); EOS % 0.4 % (0-4.5); HEMATOCRIT 42.4 % (35.4-49); HEMOGLOBIN 14.4 GM/dL (11.7-16.9); MCH 30.9 pg (25.7-33.7); MEAN CELL VOLUME 90.9 fl (80-96); MEAN PLT VOLUME 8.6 fl (7.5-11.1); MONO % 9.7 % (3.8-10.2); NEUT % 74.3 % (42.8-82.8); PLATELET COUNT 239 10^3/uL (134-434); POTASSIUM 4.6 mmol/L (3.5-5.1); RBC 4.66 M/mm3 (4.00-5.60); RDW 13.4 % (11.9-15.9); WHITE BLOOD COUNT 5.9 K/mm3 (4.0-10.0)
[2023-08-15 11:09] LABS: CALCIUM 9.9 mg/dL (8.5-10.1)
[2023-08-15 11:10] LABS: ALBUMIN 3.7 g/dl (3.4-5.0); BLOOD UREA NITROGEN 18.4 mg/dL (7-18); MAGNESIUM 2.2 mg/dL (1.8-2.4)
[2023-08-15 11:14] LABS: BILIRUBIN,TOTAL 0.6 mg/dL (0.2-1); TOT PROT 6.9 g/dl (6.4-8.2)
[2023-08-15] MEDS: metoPROLOL SUCCINATE 25 MG TAB.SR.24H (FP) PO SCH (14:49)
[2023-08-15] MEDS ORDERED: MAGNESIUM HYDROX 2400MG/30ML ORAL SUSPENSION 30 ML CUP PO ONE (17:15)
[2023-08-15] MEDS: clonazePAM 0.5 MG TABLET PO PRN (22:23)
[2023-08-16] MEDS ORDERED: ACETAMINOPHEN 325 MG TABLET (FP) PO ONE (03:25)
[2023-08-16] MEDS ORDERED: MELATONIN 5 MG TABLETS PO PRN (03:28)
[2023-08-16 07:40] LABS: CHOLESTEROL 173 mg/dL (50-200)
[2023-08-16 07:41] LABS: LDL CHOLESTEROL (ONLY SJRH) 113 mg/dL (5-100)
[2023-08-16 07:43] LABS: HDL CHOLESTEROL 50 mg/dL (40-60)
[2023-08-16] MEDS: TAMSULOSIN HCL 0.4 MG CAP PO SCH (08:51)
[2023-08-16] MEDS: clonazePAM 0.5 MG TABLET PO PRN (08:51)
[2023-08-16] MEDS: ASPIRIN 81 MG CHEWABLE TABLETS PO SCH (10:22)
[2023-08-16] MEDS: metoPROLOL SUCCINATE 25 MG TAB.SR.24H (FP) PO SCH (10:22)
[2023-08-16] MEDS: LISINOPRIL 10 MG TABLET PO SCH (10:22)
[2023-08-16] MEDS: DULoxetine HCL 30 MG CAPSULE.DR PO SCH (21:47)
[2023-08-17 07:11] LABS: HEMATOCRIT 39.6 % (35.4-49); HEMOGLOBIN 13.2 GM/dL (11.7-16.9); MCH 30.9 pg (25.7-33.7); MCHC 33.3 g/dl (32.0-35.9); MEAN CELL VOLUME 92.7 fl (80-96); MEAN PLT VOLUME 8.8 fl (7.5-11.1); PLATELET COUNT 211 10^3/uL (134-434); RBC 4.28 M/mm3 (4.00-5.60); RDW 13.6 % (11.9-15.9); WHITE BLOOD COUNT 6.1 K/mm3 (4.0-10.0)
[2023-08-17 07:29] LABS: POTASSIUM 4.5 mmol/L (3.5-5.1)
[2023-08-17 07:35] LABS: ALBUMIN 3.4 g/dl (3.4-5.0); BLOOD UREA NITROGEN 27.4 mg/dL (7-18); CALCIUM 9.5 mg/dL (8.5-10.1)
[2023-08-17 07:36] LABS: MAGNESIUM 2.2 mg/dL (1.8-2.4)
[2023-08-17 07:38] LABS: CREATININE 0.9 mg/dL (0.55-1.3); PHOSPHOROUS 2.9 mg/dL (2.5-4.9)
[2023-08-17 07:39] LABS: TOT PROT 6.2 g/dl (6.4-8.2)
[2023-08-17 07:40] LABS: BILIRUBIN,TOTAL 0.4 mg/dL (0.2-1)
[2023-08-17] MEDS: LISINOPRIL 10 MG TABLET PO SCH (09:05)
[2023-08-17] MEDS ORDERED: REGADENOSON 0.4 MG/5 ML PRE-FILLED SYRINGE IVPUSH ONE ×2 (10:30)
[2023-08-17] MEDS: clonazePAM 0.5 MG TABLET PO PRN (14:06)
[2023-08-17] MEDS: TAMSULOSIN HCL 0.4 MG CAP PO SCH (14:06)
[2023-08-17] MEDS: ASPIRIN 81 MG CHEWABLE TABLETS PO SCH (14:06)
[2023-08-17] MEDS: DULoxetine HCL 30 MG CAPSULE.DR PO SCH (14:06)
[2023-08-17 17:10] VITALS: BP 136/62; PULSE 62; RESP 18; TEMP 98.1
== END 2023-08-17 19:21 | disposition home or self-care (01) ==
LOC: JER 09:47 → JERBED 11:45 → J4W 12:26
PROVIDERS: ADMIT Internal Medicine; ATTEND Internal Medicine
PROC: 3E033GC Introduction of Other Therapeutic Substance into Peripheral Vein, Percutaneous Approach (ICD-10-PCS; principal; 2023-08-15)
PROC: 3E033GC Introduction of Other Therapeutic Substance into Peripheral Vein, Percutaneous Approach (ICD-10-PCS; 2023-08-15)
DX: U07.1 COVID-19 (principal); I25.10 Atherosclerotic heart disease of native coronary artery without angina pectoris; E78.5 Hyperlipidemia, unspecified; I11.0 Hypertensive heart disease with heart failure; M51.36 Other intervertebral disc degeneration, lumbar region; I45.3 Trifascicular block; K59.00 Constipation, unspecified; F41.9 Anxiety disorder, unspecified; G89.29 Other chronic pain; R33.9 Retention of urine, unspecified; I24.9 Acute ischemic heart disease, unspecified; M19.90 Unspecified osteoarthritis, unspecified site; R94.31 Abnormal electrocardiogram [ECG] [EKG]; M54.40 Lumbago with sciatica, unspecified side; J44.9 Chronic obstructive pulmonary disease, unspecified; Z85.46 Personal history of malignant neoplasm of prostate; Z87.891 Personal history of nicotine dependence; Z86.16 Personal history of COVID-19
CPT/HCPCS: 0241U-QW; 36415; 71045-TC-FY; 78452-TC; 80053; 80061; 82550; 83735; 84100; 84484; 85025; 85027; 93005; 93010; 93017; 93306-TC; 96374; 96375; 99285-25; A9502; G0378; J2785

== ENCOUNTER 2023-10-15 18:33 | Observation (INO) | payer OTHER ==
[2023-10-15 18:48] VITALS: RESP 18
[2023-10-15] MEDS ORDERED: LIDOCAINE HCL 2% JELLY 11 ML TP ONE (19:31)
[2023-10-15] MEDS ORDERED: clonazePAM 0.5 MG TABLET ONE (20:18)
[2023-10-15 20:20] LABS: BASO % 0.4 % (0-2.0); EOS % 0.6 % (0-4.5); HEMATOCRIT 41.9 % (35.4-49); HEMOGLOBIN 14.3 GM/dL (11.7-16.9); LYMPH % 16.5 % (8-40); MCHC 34.1 g/dl (32.0-35.9); MEAN CELL VOLUME 90.7 fl (80-96); MEAN PLT VOLUME 8.6 fl (7.5-11.1); MONO % 9.1 % (3.8-10.2); NEUT % 73.4 % (42.8-82.8); PH,URINE 5.5 (5.0-8.0); PLATELET COUNT 225 10^3/uL (134-434); RBC 4.62 M/mm3 (4.00-5.60); RDW 13.4 % (11.9-15.9); URINE APPEARANCE CLEAR; URINE BILIRUBIN NEGATIVE (NEGATIVE); URINE COLOR YELLOW; URINE GLUCOSE (UA) NEGATIVE (NEGATIVE); URINE KETONE NEGATIVE (NEGATIVE); URINE LEUK ESTERASE NEGATIVE (NEGATIVE); URINE NITRITE NEGATIVE (NEGATIVE); URINE PROTEIN NEGATIVE (NEGATIVE); WHITE BLOOD COUNT 7.1 K/mm3 (4.0-10.0)
[2023-10-15] MEDS: LORazepam 2 MG TABLET PO ONE (20:21)
[2023-10-15] MEDS: clonazePAM 0.5 MG TABLET PO ONE (20:30)
[2023-10-15 20:49] LABS: POTASSIUM 4.2 mmol/L (3.5-5.1)
[2023-10-15 20:51] LABS: ALBUMIN 3.8 g/dl (3.4-5.0); BLOOD UREA NITROGEN 30.3 mg/dL (7-18); CALCIUM 9.6 mg/dL (8.5-10.1)
[2023-10-15 20:54] LABS: CREATININE 0.9 mg/dL (0.55-1.3)
[2023-10-15 20:56] LABS: BILIRUBIN,TOTAL 0.4 mg/dL (0.2-1); TOT PROT 6.8 g/dl (6.4-8.2)
[2023-10-16] MEDS: SODIUM CHLORIDE 1,000 ML IV SCH (02:02)
[2023-10-16 08:17] LABS: BASO % 0.8 % (0-2.0); EOS % 1.7 % (0-4.5); HEMATOCRIT 36.4 % (35.4-49); HEMOGLOBIN 12.3 GM/dL (11.7-16.9); LYMPH % 25.9 % (8-40); MCH 30.9 pg (25.7-33.7); MCHC 33.9 g/dl (32.0-35.9); MEAN PLT VOLUME 8.7 fl (7.5-11.1); MONO % 14.1 % (3.8-10.2); NEUT % 57.5 % (42.8-82.8); PLATELET COUNT 186 10^3/uL (134-434); RDW 12.9 % (11.9-15.9); WHITE BLOOD COUNT 5.9 K/mm3 (4.0-10.0)
[2023-10-16 08:42] LABS: POTASSIUM 4.1 mmol/L (3.5-5.1)
[2023-10-16 08:52] LABS: ALBUMIN 3.1 g/dl (3.4-5.0); BLOOD UREA NITROGEN 30.4 mg/dL (7-18); MAGNESIUM 2.2 mg/dL (1.8-2.4)
[2023-10-16 08:55] LABS: CREATININE 0.9 mg/dL (0.55-1.3)
[2023-10-16 08:56] LABS: PHOSPHOROUS 3.4 mg/dL (2.5-4.9)
[2023-10-16 08:57] LABS: BILIRUBIN,TOTAL 0.4 mg/dL (0.2-1); TOT PROT 5.6 g/dl (6.4-8.2)
[2023-10-16] MEDS: ENOXAPARIN NA (PORCINE) 40 MG/0.4 ML DISP.SYRIN SQ SCH (10:45)
[2023-10-16] MEDS: TAMSULOSIN HCL 0.4 MG CAP PO SCH (11:37)
[2023-10-16] MEDS: clonazePAM 0.5 MG TABLET PO SCH (12:59)
[2023-10-16] MEDS: POLYETHYLENE GLYCOL (HEALTHYLAX) 3350 17 GM PACKET PO SCH (16:24)
[2023-10-16] MEDS: DULoxetine HCL 30 MG CAPSULE.DR PO SCH (21:22)
[2023-10-16] MEDS ORDERED: QUEtiapine FUMARATE 50 MG TABLET PO SCH (22:00)
[2023-10-17] MEDS: LISINOPRIL 10 MG TABLET PO SCH (09:16)
[2023-10-17 10:12] LABS: BASO % 0.6 % (0-2.0); EOS % 2.4 % (0-4.5); HEMOGLOBIN 12.6 GM/dL (11.7-16.9); LYMPH % 17.6 % (8-40); MCH 31.8 pg (25.7-33.7); MEAN CELL VOLUME 90.9 fl (80-96); MEAN PLT VOLUME 8.9 fl (7.5-11.1); MONO % 9.7 % (3.8-10.2); NEUT % 69.7 % (42.8-82.8); PLATELET COUNT 175 10^3/uL (134-434); RBC 3.96 M/mm3 (4.00-5.60); RDW 13.4 % (11.9-15.9); WHITE BLOOD COUNT 6.1 K/mm3 (4.0-10.0)
[2023-10-17 10:37] LABS: POTASSIUM 3.9 mmol/L (3.5-5.1)
[2023-10-17 10:39] LABS: CALCIUM 9.2 mg/dL (8.5-10.1)
[2023-10-17 10:41] LABS: ALBUMIN 3.1 g/dl (3.4-5.0); BLOOD UREA NITROGEN 18.6 mg/dL (7-18)
[2023-10-17 10:44] LABS: CREATININE 0.8 mg/dL (0.55-1.3)
[2023-10-17 10:45] LABS: BILIRUBIN,TOTAL 0.4 mg/dL (0.2-1); TOT PROT 5.8 g/dl (6.4-8.2)
[2023-10-18] MEDS: BISACODYL 10 MG SUPP.RECT PR ONE (10:54)
[2023-10-19] MEDS: ACETAMINOPHEN 1000 MG/100 ML BAG IVPB ONE (02:31)
[2023-10-19] MEDS: ACETAMINOPHEN 325 MG TABLET (FP) PO ONE (04:31)
[2023-10-19 20:12] VITALS: BP 95/51; PULSE 108; TEMP 97.6
[2023-10-19 21:42] VITALS: BMI 19.5
== END 2023-10-19 20:30 | disposition home or self-care (01) ==
LOC: JER 18:33 → JERBED 21:47 → J6S 10-16 01:44
PROVIDERS: ADMIT Internal Medicine; ATTEND Internal Medicine
PROC: 0T9B70Z Drainage of Bladder with Drainage Device, Via Natural or Artificial Opening (ICD-10-PCS; principal; 2023-10-15)
PROC: 3E023GC Introduction of Other Therapeutic Substance into Muscle, Percutaneous Approach (ICD-10-PCS; 2023-10-15)
DX: R33.9 Retention of urine, unspecified (principal); Z85.46 Personal history of malignant neoplasm of prostate; I25.10 Atherosclerotic heart disease of native coronary artery without angina pectoris; I11.0 Hypertensive heart disease with heart failure; E78.5 Hyperlipidemia, unspecified; F41.9 Anxiety disorder, unspecified; M19.90 Unspecified osteoarthritis, unspecified site; K59.00 Constipation, unspecified; J44.9 Chronic obstructive pulmonary disease, unspecified; Z90.6 Acquired absence of other parts of urinary tract; M51.36 Other intervertebral disc degeneration, lumbar region
CPT/HCPCS: 36415; 51702; 70450-TC; 71045-TC-FY; 76775-TC; 80053; 81003; 83735; 84100; 84153; 85025; 87086; 93005; 93010; 96372; 97116-GP; 97162-GP; 99285-25; G0378; J0131

== ENCOUNTER 2024-07-26 10:48 | Inpatient (IN) | payer OTHER ==
[2024-07-26 11:09] VITALS: BMI 19.2
[2024-07-26 12:31] LABS: BASO % 0.7 % (0-2.0); EOS % 2.1 % (0-4.5); HEMATOCRIT 41.1 % (35.4-49); HEMOGLOBIN 13.7 GM/dL (11.7-16.9); LYMPH % 16.2 % (8-40); MCH 30.9 pg (25.7-33.7); MCHC 33.4 g/dl (32.0-35.9); MEAN CELL VOLUME 92.5 fl (80-96); MEAN PLT VOLUME 8.5 fl (7.5-11.1); MONO % 10.9 % (3.8-10.2); NEUT % 70.1 % (42.8-82.8); PLATELET COUNT 262 10^3/uL (134-434); RBC 4.45 M/mm3 (4.00-5.60); RDW 13.7 % (11.9-15.9); WHITE BLOOD COUNT 4.7 K/mm3 (4.0-10.0)
[2024-07-26] MEDS ORDERED: TAMSULOSIN HCL 0.4 MG CAP ONE (12:47)
[2024-07-26] MEDS ORDERED: BISACODYL 10 MG SUPP.RECT ONE (12:47)
[2024-07-26 12:52] LABS: POTASSIUM 4.4 mmol/L (3.5-5.1)
[2024-07-26 12:55] LABS: BLOOD UREA NITROGEN 28.8 mg/dL (7-18); CALCIUM 9.8 mg/dL (8.5-10.1); MAGNESIUM 2.4 mg/dL (1.8-2.4)
[2024-07-26] MEDS: BISACODYL 10 MG SUPP.RECT PR ONE (12:55)
[2024-07-26] MEDS: TAMSULOSIN HCL 0.4 MG CAP PO ONE (12:55)
[2024-07-26 12:59] LABS: BILIRUBIN,TOTAL 0.5 mg/dL (0.2-1); CREATININE 1.1 mg/dL (0.55-1.3); TOT PROT 7.1 g/dl (6.4-8.2)
[2024-07-26] MEDS ORDERED: ACETAMINOPHEN INJECTION 100 ML ONE (13:04)
[2024-07-26] MEDS: ACETAMINOPHEN 1000 MG/100 ML BAG IVPB ONE (13:14)
[2024-07-26] MEDS ORDERED: PATIENT'S OWN MEDICATION (NON-FORMULARY) (Clonazepam [Klonopin] 1 MG Tablet) PO PRN (18:33)
[2024-07-26] MEDS ORDERED: clonazePAM 0.5 MG TABLET PO PRN (18:45)
[2024-07-26] MEDS: HEPARIN NA (PORCINE) 5,000 UNITS/ML 1ML VIAL SQ SCH (22:19)
[2024-07-26] MEDS: D5-1/2NS+20 MEQ KCL - 20 MEQ/1,000 ML INFUS.BAG IV SCH (22:20)
[2024-07-26] MEDS: DULoxetine HCL 30 MG CAPSULE.DR PO SCH (22:20)
[2024-07-26] MEDS: QUEtiapine FUMARATE 50 MG TABLET PO SCH (22:20)
[2024-07-26] MEDS: POLYETHYLENE GLYCOL (HEALTHYLAX) 3350 17 GM PACKET PO SCH (22:20)
[2024-07-27] MEDS: DUTASTERIDE 0.5 MG CAP (FP) PO SCH (00:43)
[2024-07-27] MEDS: TAMSULOSIN HCL 0.4 MG CAP PO SCH (08:44)
[2024-07-27] MEDS: LISINOPRIL 10 MG TABLET PO SCH (09:46)
[2024-07-27 09:49] LABS: BASO % 0.7 % (0-2.0); EOS % 2.3 % (0-4.5); HEMATOCRIT 37.8 % (35.4-49); HEMOGLOBIN 12.6 GM/dL (11.7-16.9); LYMPH % 22.3 % (8-40); MCH 30.8 pg (25.7-33.7); MCHC 33.4 g/dl (32.0-35.9); MEAN CELL VOLUME 92.2 fl (80-96); MEAN PLT VOLUME 8.3 fl (7.5-11.1); MONO % 8.4 % (3.8-10.2); NEUT % 66.3 % (42.8-82.8); PLATELET COUNT 237 10^3/uL (134-434); RBC 4.09 M/mm3 (4.00-5.60); RDW 13.8 % (11.9-15.9); WHITE BLOOD COUNT 4.7 K/mm3 (4.0-10.0)
[2024-07-27 09:53] LABS: POTASSIUM 4.2 mmol/L (3.5-5.1)
[2024-07-27 10:00] LABS: ALBUMIN 3.3 g/dl (3.4-5.0); BLOOD UREA NITROGEN 26.8 mg/dL (7-18); MAGNESIUM 2.1 mg/dL (1.8-2.4)
[2024-07-27 10:01] LABS: BILIRUBIN,TOTAL 0.4 mg/dL (0.2-1)
[2024-07-27 10:06] LABS: TOT PROT 5.6 g/dl (6.4-8.2)
[2024-07-27] MEDS: LIDOCAINE 5% TOPICAL PATCH TP SCH (13:55)
[2024-07-27 19:24] LABS: URINE APPEARANCE CLEAR; URINE BILIRUBIN NEGATIVE (NEGATIVE); URINE COLOR YELLOW; URINE GLUCOSE (UA) NEGATIVE (NEGATIVE); URINE KETONE NEGATIVE (NEGATIVE); URINE LEUK ESTERASE NEGATIVE (NEGATIVE); URINE NITRITE NEGATIVE (NEGATIVE); URINE PROTEIN NEGATIVE (NEGATIVE)
[2024-07-27] MEDS: LIDOCAINE PATCH REMOVAL MC SCH (21:59)
[2024-07-28] MEDS ORDERED: D5-1/2NS+20 MEQ KCL - 20 MEQ/1,000 ML INFUS.BAG IV SCH (06:55)
[2024-07-28 09:14] LABS: BASO % 0.7 % (0-2.0); EOS % 4.5 % (0-4.5); HEMATOCRIT 37.5 % (35.4-49); HEMOGLOBIN 12.8 GM/dL (11.7-16.9); LYMPH % 24.2 % (8-40); MCH 30.9 pg (25.7-33.7); MCHC 34.1 g/dl (32.0-35.9); MEAN CELL VOLUME 90.6 fl (80-96); MEAN PLT VOLUME 8.2 fl (7.5-11.1); MONO % 12.2 % (3.8-10.2); NEUT % 58.4 % (42.8-82.8); PLATELET COUNT 232 10^3/uL (134-434); RBC 4.14 M/mm3 (4.00-5.60); RDW 14.1 % (11.9-15.9); WHITE BLOOD COUNT 4.9 K/mm3 (4.0-10.0)
[2024-07-28 09:19] LABS: INR 1.05 (0.83-1.09); PROTHROMBIN TIME (PATIENT) 11.8 SEC (9.7-13.0)
[2024-07-28 10:01] LABS: POTASSIUM 4.5 mmol/L (3.5-5.1)
[2024-07-28 10:28] LABS: CALCIUM 9.2 mg/dL (8.5-10.1)
[2024-07-28 10:29] LABS: ALBUMIN 3.4 g/dl (3.4-5.0); BLOOD UREA NITROGEN 19.8 mg/dL (7-18)
[2024-07-28 10:31] LABS: CREATININE 0.9 mg/dL (0.55-1.3)
[2024-07-28 10:33] LABS: BILIRUBIN,TOTAL 0.5 mg/dL (0.2-1)
[2024-07-28] MEDS ORDERED: PROPOFOL 20 ML ONE (10:45)
[2024-07-28] MEDS: ceFAZolin SODIUM 1 GM VIAL IVPB ONE (10:57)
[2024-07-28] MEDS ORDERED: ONDANSETRON 4 MG/2 ML VIAL IVPUSH PRN (11:36)
[2024-07-28] MEDS ORDERED: LACTATED RINGERS SOLUTION 1,000 ML IV SCH (11:45)
[2024-07-28 12:07] LABS: HEPATITIS B SURFACE AG MATERN NON-REACTIVE (NONREACTIVE)
[2024-07-28] MEDS: oxyCODONE HCL 5 MG TABLET PO PRN (13:06)
[2024-07-28] MEDS: POLYETHYLENE GLYCOL (HEALTHYLAX) 3350 17 GM PACKET PO SCH (14:42)
[2024-07-28] MEDS: CEFTRIAXONE 2 GM-D5W BAG 2 GM/50 ML BAG IVPB ONE (18:00)
[2024-07-28] MEDS: HEPARIN NA (PORCINE) 5,000 UNITS/ML 1ML VIAL SQ SCH (21:17)
[2024-07-28] MEDS: QUEtiapine FUMARATE 50 MG TABLET PO SCH (21:17)
[2024-07-28] MEDS: LIDOCAINE PATCH REMOVAL MC SCH (21:17)
[2024-07-28] MEDS: DULoxetine HCL 30 MG CAPSULE.DR PO SCH (21:17)
[2024-07-29 08:40] LABS: HEMATOCRIT 34.9 % (35.4-49); HEMOGLOBIN 11.3 GM/dL (11.7-16.9); MCH 30.3 pg (25.7-33.7); MCHC 32.4 g/dl (32.0-35.9); MEAN CELL VOLUME 93.3 fl (80-96); MEAN PLT VOLUME 8.5 fl (7.5-11.1); PLATELET COUNT 198 10^3/uL (134-434); RBC 3.74 M/mm3 (4.00-5.60); RDW 14.3 % (11.9-15.9); WHITE BLOOD COUNT 6.7 K/mm3 (4.0-10.0)
[2024-07-29 08:46] LABS: POTASSIUM 5.1 mmol/L (3.5-5.1)
[2024-07-29 08:49] LABS: CALCIUM 9.1 mg/dL (8.5-10.1)
[2024-07-29 08:50] LABS: BLOOD UREA NITROGEN 17.7 mg/dL (7-18)
[2024-07-29 08:53] LABS: CREATININE 0.9 mg/dL (0.55-1.3)
[2024-07-29] MEDS: TAMSULOSIN HCL 0.4 MG CAP PO SCH (09:10)
[2024-07-29] MEDS: DUTASTERIDE 0.5 MG CAP (FP) PO SCH (09:11)
[2024-07-29] MEDS: LIDOCAINE 5% TOPICAL PATCH TP SCH (09:48)
[2024-07-29] MEDS: LISINOPRIL 10 MG TABLET PO SCH (10:19)
[2024-07-29] MEDS ORDERED: CEFTRIAXONE 1 G/50 ML PREMIX 50 ML IVPB ONE (10:45)
[2024-07-29 11:07] LABS: CARCINOEMBRYONIC ANTIGEN 1.4 ng/mL (0.0-4.7)
[2024-07-29] MEDS: clonazePAM 0.5 MG TABLET PO PRN (14:03)
[2024-07-29] MEDS: oxyCODONE HCL 5 MG TABLET PO PRN (14:28)
[2024-07-29] MEDS: D5-1/2NS+20 MEQ KCL - 20 MEQ/1,000 ML INFUS.BAG IV SCH (14:30)
[2024-07-29] MEDS: CEFTRIAXONE 1 G/50 ML PREMIX 50 ML IVPB ONE (14:34)
[2024-07-29 18:16] LABS: GLIADIN ANTIBODY IGA 3 units (0-19); GLIADIN ANTIBODY IGG 3 units (0-19); TRANSGLUTAMINASE IGG < 2 U/mL (0-5)
[2024-07-30] MEDS: CEFTRIAXONE 1 G/50 ML PREMIX 50 ML IVPB ONE (12:25)
[2024-07-31 09:15] VITALS: TEMP 97.5
[2024-07-31 16:08] VITALS: BP 125/54; PULSE 76; RESP 18
== END 2024-07-31 18:12 | disposition home or self-care (01) | DRG 697 ==
LOC: JER 10:48 → JERBED 16:39 → OBSVTOIN 18:34 → J6S 20:26
PROVIDERS: ADMIT Family Medicine; ATTEND Family Medicine
PROC: 0T7D8ZZ Dilation of Urethra, Via Natural or Artificial Opening Endoscopic (ICD-10-PCS; principal; 2024-07-28 11:00)
DX: N35.819 Other urethral stricture, male, unspecified site (principal); N39.0 Urinary tract infection, site not specified; R33.9 Retention of urine, unspecified; I10 Essential (primary) hypertension; K59.00 Constipation, unspecified; J44.9 Chronic obstructive pulmonary disease, unspecified; K52.9 Noninfective gastroenteritis and colitis, unspecified; I25.10 Atherosclerotic heart disease of native coronary artery without angina pectoris; K76.9 Liver disease, unspecified; E78.5 Hyperlipidemia, unspecified; F41.9 Anxiety disorder, unspecified; I35.0 Nonrheumatic aortic (valve) stenosis; Z85.46 Personal history of malignant neoplasm of prostate
CPT/HCPCS: 36415; 74177-TC; 80048; 80053; 81003; 82105; 82378; 82728; 82784; 82962; 83516; 83540; 83550; 83605; 83690; 83735; 84443; 85025; 85027; 85610; 86038; 86301; 86803; 87086; 87186; 87340; 87517; 93005; 93010; 94760; 99285-25; G0378; J0131; J1644

== ENCOUNTER 2024-10-21 17:16 | Inpatient (IN) | payer OTHER ==
[2024-10-21 17:34] VITALS: BMI 18.0
[2024-10-21] MEDS ORDERED: QUEtiapine FUMARATE 25 MG TABLET ONE (18:08)
[2024-10-21] MEDS: QUEtiapine FUMARATE 50 MG TABLET PO ONE (18:10)
[2024-10-21 18:35] LABS: ABSOLUTE IMMATURE GRANULOCYTES 0.01 x10^3/uL (0.0-0.031); BASOPHILS # 0.05 x10^3/uL (0.01-0.08); EOSINOPHIL % 2.8 % (0.8-7.0); EOSINOPHILS # 0.15 x10^3/uL (0.04-0.54); HEMATOCRIT 39.5 % (40.1-51.0); HEMOGLOBIN 12.8 g/dL (13.7-17.5); MCHC 32.4 g/dl (32.3-36.5); MEAN CELL VOLUME 93.8 fl (79.0-92.2); MEAN PLT VOLUME 10.1 fl (9.4-12.4); MONOCYTE # 0.66 x10^3/uL (0.30-0.82); MONOCYTE % 12.2 % (5.3-12.2); PLATELET COUNT 271 x10^3/uL (163-337); RDW 13.2 % (12.6-16.6)
[2024-10-21 18:54] LABS: POTASSIUM 4.9 mmol/L (3.5-5.1)
[2024-10-21 18:56] LABS: CALCIUM 9.8 mg/dL (8.5-10.1)
[2024-10-21 18:57] LABS: ALBUMIN 3.8 g/dl (3.4-5.0); BLOOD UREA NITROGEN 31.8 mg/dL (7-18)
[2024-10-21 19:00] LABS: CREATININE 0.9 mg/dL (0.55-1.3)
[2024-10-21 19:01] LABS: BILIRUBIN,TOTAL 0.8 mg/dL (0.2-1)
[2024-10-21 19:02] LABS: TOT PROT 6.5 g/dl (6.4-8.2)
[2024-10-21] MEDS ORDERED: ACETAMINOPHEN INJECTION 100 ML ONE (20:35)
[2024-10-21] MEDS: LACTATED RINGERS SOLUTION 1000 ML INFUS.BAG IV ONE (20:36)
[2024-10-21] MEDS: ACETAMINOPHEN 1000 MG/100 ML BAG IVPB ONE (20:52)
[2024-10-22] MEDS ORDERED: LIDOCAINE 5% TOPICAL PATCH ONE (03:27)
[2024-10-22 03:51] LABS: EPI CELLS 0 /uL (0-25.1); HYALINE CASTS 1 /uL (0-3.1); PH,URINE 5.5 (5.0-8.0); URINE APPEARANCE CLOUDY; URINE BACTERIA 1015 /uL (0-1359); URINE BILIRUBIN NEGATIVE (NEGATIVE); URINE COLOR YELLOW; URINE GLUCOSE (UA) NEGATIVE (NEGATIVE); URINE KETONE TRACE (NEGATIVE); URINE LEUK ESTERASE 2+ (NEGATIVE); URINE NITRITE NEGATIVE (NEGATIVE); URINE PROTEIN NEGATIVE (NEGATIVE); URINE RBC 266 /uL (0-23.9); URINE WBC 626 /uL (0-25.8)
[2024-10-22 03:57] LABS: OPIATES, URI NEGATIVE (NEGATIVE); PHENCYCLIDINE,URINE NEGATIVE (NEGATIVE); URINE AMPHETAMINES NEGATIVE (NEGATIVE); URINE BENZODIAZEPINES NEGATIVE (NEGATIVE)
[2024-10-22 03:58] LABS: METHADONE, UR NEGATIVE (NEGATIVE)
[2024-10-22 04:09] LABS: COCAINE, UR NEGATIVE (NEGATIVE); URINE BARBITURATES NEGATIVE (NEGATIVE)
[2024-10-22] MEDS: METHYL SALICYLATE/MENTHOL 30 GM TUBE TP ONE (04:11)
[2024-10-22] MEDS: LACTATED RINGERS SOLUTION 1000 ML INFUS.BAG IV ONE (04:11)
[2024-10-22] MEDS: LIDOCAINE 5% TOPICAL PATCH TP ONE (04:11)
[2024-10-22] MEDS ORDERED: CEFTRIAXONE 1 G/50 ML PREMIX 50 ML IVPB ONE (04:16)
[2024-10-22] MEDS: SODIUM CHLORIDE 0.9% 500 ML INFUS.BAG IV ONE (04:24)
[2024-10-22] MEDS ORDERED: MELATONIN 5 MG TABLETS ONE (04:59)
[2024-10-22] MEDS: MELATONIN 5 MG TABLETS PO ONE (05:02)
[2024-10-22 07:03] LABS: POTASSIUM 3.8 mmol/L (3.5-5.1)
[2024-10-22 07:05] LABS: BLOOD UREA NITROGEN 26.2 mg/dL (7-18); CALCIUM 8.5 mg/dL (8.5-10.1); MAGNESIUM 2.2 mg/dL (1.8-2.4)
[2024-10-22 07:09] LABS: CREATININE 0.8 mg/dL (0.55-1.3); PHOSPHOROUS 3.2 mg/dL (2.5-4.9)
[2024-10-22 07:26] LABS: ABSOLUTE IMMATURE GRANULOCYTES 0.01 x10^3/uL (0.0-0.031); BASOPHILS # 0.04 x10^3/uL (0.01-0.08); EOSINOPHIL % 4.4 % (0.8-7.0); EOSINOPHILS # 0.18 x10^3/uL (0.04-0.54); HEMATOCRIT 34.4 % (40.1-51.0); HEMOGLOBIN 11.2 g/dL (13.7-17.5); MCHC 32.6 g/dl (32.3-36.5); MEAN CELL VOLUME 94.8 fl (79.0-92.2); MEAN PLT VOLUME 10.5 fl (9.4-12.4); MONOCYTE % 14.7 % (5.3-12.2); PLATELET COUNT 223 x10^3/uL (163-337); RDW 13.3 % (12.6-16.6)
[2024-10-22] MEDS ORDERED: POLYETHYLENE GLYCOL (HEALTHYLAX) 3350 17 GM PACKET ONE (11:12)
[2024-10-22] MEDS ORDERED: buPROPion HCL 100 MG TABLET ONE (11:12)
[2024-10-22] MEDS ORDERED: DULoxetine HCL 30 MG CAPSULE.DR PO ONE (11:12)
[2024-10-22] MEDS: DULoxetine HCL 30 MG CAPSULE.DR PO SCH (11:15)
[2024-10-22] MEDS: POLYETHYLENE GLYCOL (HEALTHYLAX) 3350 17 GM PACKET PO SCH (12:16)
[2024-10-22] MEDS ORDERED: ALBUTEROL SO4 2.5/IPRATROPIUM 0.5 INH SOL 3 ML VIAL.NEB. NEB ONE (15:40)
[2024-10-22] MEDS: LIDOCAINE PATCH REMOVAL MC ONE (16:47)
[2024-10-22] MEDS: HEPARIN NA (PORCINE) 5,000 UNITS/ML 1ML VIAL SQ SCH (21:45)
[2024-10-22] MEDS: QUEtiapine FUMARATE 50 MG TABLET PO SCH (21:47)
[2024-10-23 08:32] LABS: BASOPHILS # 0.03 x10^3/uL (0.01-0.08); EOSINOPHIL % 4.5 % (0.8-7.0); EOSINOPHILS # 0.21 x10^3/uL (0.04-0.54); HEMATOCRIT 35.1 % (40.1-51.0); HEMOGLOBIN 11.4 g/dL (13.7-17.5); MCHC 32.5 g/dl (32.3-36.5); MEAN CELL VOLUME 94.4 fl (79.0-92.2); MEAN PLT VOLUME 10.2 fl (9.4-12.4); MONOCYTE # 0.56 x10^3/uL (0.30-0.82); MONOCYTE % 11.9 % (5.3-12.2); PLATELET COUNT 225 x10^3/uL (163-337); RDW 13.4 % (12.6-16.6)
[2024-10-23] MEDS: TAMSULOSIN HCL 0.4 MG CAP PO SCH (08:41)
[2024-10-23 09:05] LABS: BLOOD UREA NITROGEN 22.6 mg/dL (7-18); CALCIUM 9.3 mg/dL (8.5-10.1)
[2024-10-23 09:06] LABS: ALBUMIN 3.1 g/dl (3.4-5.0)
[2024-10-23 09:09] LABS: CREATININE 0.9 mg/dL (0.55-1.3)
[2024-10-23 09:10] LABS: BILIRUBIN,TOTAL 0.4 mg/dL (0.2-1); TOT PROT 5.4 g/dl (6.4-8.2)
[2024-10-23] MEDS: LISINOPRIL 10 MG TABLET PO SCH (09:32)
[2024-10-23] MEDS: CEFTRIAXONE 1 G/50 ML PREMIX 50 ML IVPB SCH (10:58)
[2024-10-23] MEDS: LIDOCAINE 5% TOPICAL PATCH TP SCH (10:58)
[2024-10-23] MEDS: ACETAMINOPHEN 1000 MG/100 ML BAG IVPB PRN (11:39)
[2024-10-23] MEDS: ACETAMINOPHEN 1000 MG/100 ML BAG IVPB ONE (17:45)
[2024-10-23] MEDS: LIDOCAINE HCL 5% TOP OINTMENT 50 GM TUBE TP ONE ×2 (21:45→22:11)
[2024-10-23] MEDS: LIDOCAINE PATCH REMOVAL MC SCH (21:46)
[2024-10-24] MEDS: ACETAMINOPHEN 325 MG TABLET (FP) PO SCH (00:02)
[2024-10-24] MEDS: MELATONIN 5 MG TABLETS PO ONE (00:02)
[2024-10-24 09:20] LABS: ABSOLUTE IMMATURE GRANULOCYTES 0.01 x10^3/uL (0.0-0.031); BASOPHILS # 0.03 x10^3/uL (0.01-0.08); EOSINOPHIL % 6.3 % (0.8-7.0); EOSINOPHILS # 0.29 x10^3/uL (0.04-0.54); HEMATOCRIT 34.6 % (40.1-51.0); MCHC 31.8 g/dl (32.3-36.5); MEAN CELL VOLUME 95.8 fl (79.0-92.2); MEAN PLT VOLUME 10.6 fl (9.4-12.4); MONOCYTE % 13.1 % (5.3-12.2); PLATELET COUNT 196 x10^3/uL (163-337); RDW 13.3 % (12.6-16.6)
[2024-10-24] MEDS: PANTOPRAZOLE 40 MG TABLET PO SCH (09:30)
[2024-10-24 09:48] LABS: POTASSIUM 4.5 mmol/L (3.5-5.1)
[2024-10-24 09:56] LABS: BLOOD UREA NITROGEN 20.1 mg/dL (7-18)
[2024-10-24 09:58] LABS: BILIRUBIN,TOTAL 0.2 mg/dL (0.2-1); CALCIUM 9.2 mg/dL (8.5-10.1); TOT PROT 5.3 g/dl (6.4-8.2)
[2024-10-24 09:59] LABS: CREATININE 0.8 mg/dL (0.55-1.3)
[2024-10-25] MEDS: ACETAMINOPHEN 325 MG TABLET (FP) PO PRN (08:29)
[2024-10-25 08:54] LABS: ABSOLUTE IMMATURE GRANULOCYTES 0.01 x10^3/uL (0.0-0.031); BASOPHILS # 0.04 x10^3/uL (0.01-0.08); EOSINOPHIL % 7.5 % (0.8-7.0); EOSINOPHILS # 0.34 x10^3/uL (0.04-0.54); HEMATOCRIT 34.1 % (40.1-51.0); MCHC 32.3 g/dl (32.3-36.5); MEAN PLT VOLUME 10.8 fl (9.4-12.4); PLATELET COUNT 202 x10^3/uL (163-337); RDW 13.3 % (12.6-16.6)
[2024-10-25 09:13] LABS: POTASSIUM 4.6 mmol/L (3.5-5.1)
[2024-10-25 09:25] LABS: CALCIUM 9.6 mg/dL (8.5-10.1)
[2024-10-25 09:29] LABS: ALBUMIN 2.9 g/dl (3.4-5.0); BLOOD UREA NITROGEN 25.9 mg/dL (7-18)
[2024-10-25 09:32] LABS: CREATININE 0.8 mg/dL (0.55-1.3)
[2024-10-25 09:34] LABS: BILIRUBIN,TOTAL 0.2 mg/dL (0.2-1); TOT PROT 5.2 g/dl (6.4-8.2)
[2024-10-27 08:41] LABS: ABSOLUTE IMMATURE GRANULOCYTES 0.03 x10^3/uL (0.0-0.031); BASOPHILS # 0.04 x10^3/uL (0.01-0.08); EOSINOPHIL % 6.4 % (0.8-7.0); EOSINOPHILS # 0.37 x10^3/uL (0.04-0.54); HEMATOCRIT 34.5 % (40.1-51.0); HEMOGLOBIN 10.9 g/dL (13.7-17.5); MCHC 31.6 g/dl (32.3-36.5); MEAN CELL VOLUME 96.4 fl (79.0-92.2); MEAN PLT VOLUME 10.6 fl (9.4-12.4); MONOCYTE # 0.76 x10^3/uL (0.30-0.82); MONOCYTE % 13.2 % (5.3-12.2); PLATELET COUNT 201 x10^3/uL (163-337); RDW 13.4 % (12.6-16.6)
[2024-10-27 09:37] LABS: POTASSIUM 4.5 mmol/L (3.5-5.1)
[2024-10-27 09:54] LABS: BILIRUBIN,TOTAL 0.2 mg/dL (0.2-1)
[2024-10-27 10:22] LABS: ALBUMIN 2.9 g/dl (3.4-5.0); BLOOD UREA NITROGEN 31.9 mg/dL (7-18); CALCIUM 9.2 mg/dL (8.5-10.1)
[2024-10-27 10:25] LABS: CREATININE 0.8 mg/dL (0.55-1.3)
[2024-10-27 10:27] LABS: TOT PROT 5.4 g/dl (6.4-8.2)
[2024-10-28] MEDS: KETOROLAC TROMETHAMINE 10 MG TABLET PO PRN (11:31)
[2024-10-28] MEDS: REMDESIVIR 100 MG in SODIUM CHLORIDE 250 ML IVPB SCH (15:38)
[2024-10-28] MEDS: REMDESIVIR 200 MG in SODIUM CHLORIDE 250 ML IVPB ONE (15:38)
[2024-10-28] MEDS: ACETAMINOPHEN 325 MG TABLET (FP) PO PRN (18:14)
[2024-10-28] MEDS: BACLOFEN 10 MG TABLET (FP) PO SCH (21:29)
[2024-10-29 09:14] LABS: HEMATOCRIT 35.7 % (40.1-51.0); HEMOGLOBIN 11.3 g/dL (13.7-17.5); MCHC 31.7 g/dl (32.3-36.5); MEAN CELL VOLUME 95.5 fl (79.0-92.2); RDW 13.6 % (12.6-16.6)
[2024-10-29 09:36] LABS: POTASSIUM 4.7 mmol/L (3.5-5.1)
[2024-10-29 09:45] LABS: BLOOD UREA NITROGEN 31.5 mg/dL (7-18); CALCIUM 8.8 mg/dL (8.5-10.1)
[2024-10-29 09:49] LABS: CREATININE 0.9 mg/dL (0.55-1.3)
[2024-10-29 09:50] LABS: BILIRUBIN,TOTAL 0.4 mg/dL (0.2-1); TOT PROT 5.6 g/dl (6.4-8.2)
[2024-10-29] MEDS: DEXAMETHASONE SOD PHOSPHATE 10 MG/1 ML VIAL IVPUSH SCH (14:39)
[2024-10-29] MEDS: guaiFENesin/CODEINE 10 ML UNIT-DOSE CUPS PO PRN (14:41)
[2024-10-29] MEDS: ALBUTEROL SO4 2.5/IPRATROPIUM 0.5 INH SOL 3 ML VIAL.NEB. NEB SCH (15:02)
[2024-10-29] MEDS: SODIUM CHLORIDE 0.9% 500 ML INFUS.BAG IV ONE (15:12)
[2024-10-29] MEDS: DEXTROSE 5%-0.45% SALINE 1,000 ML IV SCH (15:12)
[2024-10-29 15:40] LABS: ABSOLUTE IMMATURE GRANULOCYTES 0.04 x10^3/uL (0.0-0.031); BASOPHILS # 0.05 x10^3/uL (0.01-0.08); EOSINOPHIL % 1.8 % (0.8-7.0); EOSINOPHILS # 0.09 x10^3/uL (0.04-0.54); MEAN PLT VOLUME 11.3 fl (9.4-12.4); MONOCYTE % 19.1 % (5.3-12.2); PLATELET COUNT 192 x10^3/uL (163-337)
[2024-10-29] MEDS: REMDESIVIR 100 MG in SODIUM CHLORIDE 250 ML IVPB SCH (16:53)
[2024-10-29] MEDS: BUDESONIDE/FORMETEROL FUMARATE 160/4.5 mcg INHALER IH SCH (21:28)
[2024-10-30 09:14] LABS: ABSOLUTE IMMATURE GRANULOCYTES 0.03 x10^3/uL (0.0-0.031); BASOPHILS # 0.01 x10^3/uL (0.01-0.08); HEMATOCRIT 33.5 % (40.1-51.0); HEMOGLOBIN 10.6 g/dL (13.7-17.5); MCHC 31.6 g/dl (32.3-36.5); MEAN CELL VOLUME 95.4 fl (79.0-92.2); MEAN PLT VOLUME 11.4 fl (9.4-12.4); MONOCYTE # 0.62 x10^3/uL (0.30-0.82); MONOCYTE % 17.5 % (5.3-12.2); PLATELET COUNT 196 x10^3/uL (163-337); RDW 13.8 % (12.6-16.6)
[2024-10-30 09:43] LABS: POTASSIUM 4.6 mmol/L (3.5-5.1)
[2024-10-30 10:12] LABS: CALCIUM 9.1 mg/dL (8.5-10.1)
[2024-10-30 10:13] LABS: ALBUMIN 2.7 g/dl (3.4-5.0); BLOOD UREA NITROGEN 29.3 mg/dL (7-18)
[2024-10-30 10:16] LABS: CREATININE 0.7 mg/dL (0.55-1.3)
[2024-10-30 10:17] LABS: BILIRUBIN,TOTAL 0.3 mg/dL (0.2-1); TOT PROT 5.2 g/dl (6.4-8.2)
[2024-10-31] MEDS: REMDESIVIR 100 MG in SODIUM CHLORIDE 250 ML IVPB SCH (15:28)
[2024-11-03 14:34] VITALS: BP 119/45; PULSE 82; RESP 20; TEMP 97.8
== END 2024-11-03 14:33 | DRG 689 ==
LOC: JER 17:16 → JERBED 10-22 03:17 → J8W 10-22 16:38 → OBSVTOIN 10-23 09:49
PROVIDERS: ADMIT Internal Medicine; ATTEND Internal Medicine
PROC: XW033E5 Introduction of Remdesivir Anti-infective into Peripheral Vein, Percutaneous Approach, New Technology Group 5 (ICD-10-PCS; principal; 2024-10-28)
DX: N39.0 Urinary tract infection, site not specified (principal); G93.41 Metabolic encephalopathy; U07.1 COVID-19; F23 Brief psychotic disorder; E44.0 Moderate protein-calorie malnutrition; Z68.1 Body mass index [BMI] 19.9 or less, adult; B96.20 Unspecified Escherichia coli [E. coli] as the cause of diseases classified elsewhere; I25.10 Atherosclerotic heart disease of native coronary artery without angina pectoris; I10 Essential (primary) hypertension; E78.5 Hyperlipidemia, unspecified; N40.1 Benign prostatic hyperplasia with lower urinary tract symptoms; R33.8 Other retention of urine; D64.9 Anemia, unspecified; M25.50 Pain in unspecified joint; F41.1 Generalized anxiety disorder; J44.9 Chronic obstructive pulmonary disease, unspecified; K59.00 Constipation, unspecified; L89.151 Pressure ulcer of sacral region, stage 1; R01.1 Cardiac murmur, unspecified; Z85.46 Personal history of malignant neoplasm of prostate
CPT/HCPCS: 0241U-QW; 36415; 70450-TC; 71045-TC-FY; 72070-TC-FY; 72100-TC-FY; 80048; 80053; 80307; 81003; 82607; 83735; 84100; 84443; 85025; 86140; 86780; 87086; 87186; 93005; 93010; 94640; 97116-GP; 97161-GP; 99285-25; G0378; J0131; J0248; J0475; J1100; J1644

== ENCOUNTER 2024-11-20 10:35 | Inpatient (IN) | payer OTHER ==
[2024-11-20] MEDS: SODIUM CHLORIDE 1,000 ML IV SCH (11:26)
[2024-11-20 11:37] LABS: VENOUS BASE EXCESS -2.1 mmol/L (-2-2); VENOUS O2 SATURATION 65.6 % (70-80); VENOUS PH 7.406 (7.310-7.410)
[2024-11-20 11:49] LABS: INR 1.04 (0.83-1.09); PROTHROMBIN TIME (PATIENT) 11.4 SEC (9.7-13.0)
[2024-11-20 12:19] LABS: POTASSIUM 4.3 mmol/L (3.5-5.1)
[2024-11-20 12:21] LABS: ALBUMIN 3.6 g/dl (3.4-5.0); CALCIUM 9.4 mg/dL (8.5-10.1)
[2024-11-20 12:22] LABS: BLOOD UREA NITROGEN 23.6 mg/dL (7-18)
[2024-11-20 12:25] LABS: CREATININE 0.8 mg/dL (0.55-1.3)
[2024-11-20 12:26] LABS: TOT PROT 6.7 g/dl (6.4-8.2)
[2024-11-20 12:27] LABS: BILIRUBIN,TOTAL 0.5 mg/dL (0.2-1)
[2024-11-20 13:14] LABS: ABSOLUTE IMMATURE GRANULOCYTES 0.01 x10^3/uL (0.0-0.031); BASOPHILS # 0.02 x10^3/uL (0.01-0.08); EOSINOPHIL % 0.8 % (0.8-7.0); EOSINOPHILS # 0.03 x10^3/uL (0.04-0.54); HEMATOCRIT 40.4 % (40.1-51.0); HEMOGLOBIN 13.3 g/dL (13.7-17.5); MCHC 32.9 g/dl (32.3-36.5); MEAN CELL VOLUME 96.4 fl (79.0-92.2); MEAN PLT VOLUME 10.7 fl (9.4-12.4); MONOCYTE % 10.6 % (5.3-12.2); PLATELET COUNT 214 x10^3/uL (163-337); RDW 13.1 % (12.6-16.6)
[2024-11-20 17:29] LABS: EPI CELLS 8 /uL (0-25.1); HYALINE CASTS 0 /uL (0-3.1); PH,URINE 5.5 (5.0-8.0); URINE APPEARANCE CLEAR; URINE BACTERIA 273 /uL (0-1359); URINE BILIRUBIN NEGATIVE (NEGATIVE); URINE COLOR YELLOW; URINE GLUCOSE (UA) NEGATIVE (NEGATIVE); URINE KETONE TRACE (NEGATIVE); URINE LEUK ESTERASE NEGATIVE (NEGATIVE); URINE NITRITE NEGATIVE (NEGATIVE); URINE PROTEIN NEGATIVE (NEGATIVE); URINE RBC 4 /uL (0-23.9); URINE UROBILINOGEN 0.2 mg/dL (0.2-1.0)
[2024-11-20 17:53] LABS: URINE WBC 75.2 /uL (0-25.8)
[2024-11-20] MEDS ORDERED: AZITHROMYCIN 500 MG TABLET ONE (18:20)
[2024-11-20] MEDS ORDERED: AMOX TR/POT CLAV 875MG/125MG TABLETS (FP) ONE (18:20)
[2024-11-20] MEDS: AZITHROMYCIN 250 MG TABLET PO ONE (18:35)
[2024-11-20] MEDS: AMOX TR/POT CLAV 875MG/125MG TABLETS (FP) PO ONE (18:35)
[2024-11-20 19:27] VITALS: RESP 18
[2024-11-20] MEDS: BUDESONIDE 0.5 MG/2 ML INH SUSP VIAL NEB SCH (22:10)
[2024-11-20] MEDS: ACETAMINOPHEN 1000 MG/100 ML BAG IVPB ONE (22:57)
[2024-11-20] MEDS: QUEtiapine FUMARATE 25 MG TABLET PO SCH (22:58)
[2024-11-20] MEDS: SENNOSIDES 8.6MG TABLET (FP) PO SCH (22:58)
[2024-11-20] MEDS: BACLOFEN 10 MG TABLET (FP) PO SCH (22:58)
[2024-11-21] MEDS: DOXYCYCLINE INJECTION 100 MG in DEXTROSE 5%-WATER 100 ML IVPB SCH ×2 (05:34→10:26)
[2024-11-21] MEDS: CEFTRIAXONE 1 G/50 ML PREMIX 50 ML IVPB SCH (06:09)
[2024-11-21 08:14] LABS: ABSOLUTE IMMATURE GRANULOCYTES 0.01 x10^3/uL (0.0-0.031); BASOPHILS # 0.04 x10^3/uL (0.01-0.08); EOSINOPHIL % 1.5 % (0.8-7.0); EOSINOPHILS # 0.06 x10^3/uL (0.04-0.54); HEMOGLOBIN 12.6 g/dL (13.7-17.5); MCHC 32.3 g/dl (32.3-36.5); MEAN CELL VOLUME 94.2 fl (79.0-92.2); MEAN PLT VOLUME 11.2 fl (9.4-12.4); MONOCYTE # 0.48 x10^3/uL (0.30-0.82); MONOCYTE % 11.9 % (5.3-12.2); PLATELET COUNT 195 x10^3/uL (163-337); RDW 13.1 % (12.6-16.6)
[2024-11-21 08:35] LABS: POTASSIUM 4.9 mmol/L (3.5-5.1)
[2024-11-21 08:40] LABS: CALCIUM 9.6 mg/dL (8.5-10.1); MAGNESIUM 2.3 mg/dL (1.8-2.4)
[2024-11-21 08:43] LABS: CREATININE 0.8 mg/dL (0.55-1.3)
[2024-11-21] MEDS: DULoxetine HCL 30 MG CAPSULE.DR PO SCH (09:31)
[2024-11-21] MEDS: TAMSULOSIN HCL 0.4 MG CAP PO SCH (09:31)
[2024-11-21] MEDS: LISINOPRIL 5 MG TABLET PO SCH (09:31)
[2024-11-21] MEDS: ACETAMINOPHEN 1000 MG/100 ML BAG IVPB ONE (11:13)
[2024-11-21] MEDS: AZITHROMYCIN IVPB 500 MG/250 ML BAG IVPB SCH (12:20)
[2024-11-21 17:06] VITALS: BMI 17.1
[2024-11-21] MEDS: KETOROLAC TROMETHAMINE 15 MG/ML VIAL IVPUSH PRN (19:28)
[2024-11-21] MEDS: METHYL SALICYLATE/MENTHOL 30 GM TUBE TP SCH (22:33)
[2024-11-22 07:19] LABS: ABSOLUTE IMMATURE GRANULOCYTES 0.02 x10^3/uL (0.0-0.031); BASOPHILS # 0.02 x10^3/uL (0.01-0.08); EOSINOPHIL % 1.6 % (0.8-7.0); EOSINOPHILS # 0.06 x10^3/uL (0.04-0.54); HEMATOCRIT 32.3 % (40.1-51.0); HEMOGLOBIN 10.5 g/dL (13.7-17.5); MCHC 32.5 g/dl (32.3-36.5); MEAN CELL VOLUME 93.4 fl (79.0-92.2); MEAN PLT VOLUME 10.5 fl (9.4-12.4); MONOCYTE # 0.55 x10^3/uL (0.30-0.82); MONOCYTE % 14.9 % (5.3-12.2); PLATELET COUNT 177 x10^3/uL (163-337); RDW 13.2 % (12.6-16.6)
[2024-11-22 07:42] LABS: POTASSIUM 4.1 mmol/L (3.5-5.1)
[2024-11-22 07:44] LABS: CALCIUM 9.2 mg/dL (8.5-10.1)
[2024-11-22 07:45] LABS: BLOOD UREA NITROGEN 34.8 mg/dL (7-18)
[2024-11-22 07:48] LABS: CREATININE 0.7 mg/dL (0.55-1.3)
[2024-11-22 07:49] LABS: BILIRUBIN,TOTAL 0.3 mg/dL (0.2-1)
[2024-11-22 08:02] LABS: ALBUMIN 2.7 g/dl (3.4-5.0)
[2024-11-22] MEDS: ACETAMINOPHEN 500 MG TABLET (FP) PO PRN (10:35)
[2024-11-22] MEDS: PANTOPRAZOLE 40 MG TABLET PO SCH (10:36)
[2024-11-22] MEDS: LIDOCAINE 5% TOPICAL PATCH TP SCH (16:01)
[2024-11-22] MEDS ORDERED: ACETAMINOPHEN INJECTION 100 ML ONE (21:39)
[2024-11-22] MEDS: LIDOCAINE PATCH REMOVAL MC SCH (21:48)
[2024-11-23 08:13] LABS: ABSOLUTE IMMATURE GRANULOCYTES 0.03 x10^3/uL (0.0-0.031); BASOPHILS # 0.02 x10^3/uL (0.01-0.08); EOSINOPHIL % 1.4 % (0.8-7.0); HEMATOCRIT 32.8 % (40.1-51.0); HEMOGLOBIN 10.6 g/dL (13.7-17.5); MCHC 32.3 g/dl (32.3-36.5); MEAN CELL VOLUME 96.2 fl (79.0-92.2); MEAN PLT VOLUME 10.7 fl (9.4-12.4); MONOCYTE # 0.73 x10^3/uL (0.30-0.82); MONOCYTE % 10.3 % (5.3-12.2); PLATELET COUNT 166 x10^3/uL (163-337); RDW 13.2 % (12.6-16.6)
[2024-11-23 08:35] LABS: POTASSIUM 4.1 mmol/L (3.5-5.1)
[2024-11-23 08:37] LABS: CALCIUM 9.1 mg/dL (8.5-10.1)
[2024-11-23 08:38] LABS: BLOOD UREA NITROGEN 26.7 mg/dL (7-18)
[2024-11-23 08:42] LABS: CREATININE 0.6 mg/dL (0.55-1.3)
[2024-11-23] MEDS: VANCOMYCIN/WATER FOR INJ (PEG) 1,000 MG/200 ML BAG IVPB SCH (14:31)
[2024-11-24 08:10] LABS: ABSOLUTE IMMATURE GRANULOCYTES 0.02 x10^3/uL (0.0-0.031); BASOPHILS # 0.03 x10^3/uL (0.01-0.08); EOSINOPHIL % 2.6 % (0.8-7.0); EOSINOPHILS # 0.13 x10^3/uL (0.04-0.54); HEMATOCRIT 33.4 % (40.1-51.0); HEMOGLOBIN 10.8 g/dL (13.7-17.5); MCHC 32.3 g/dl (32.3-36.5); MEAN CELL VOLUME 95.2 fl (79.0-92.2); MEAN PLT VOLUME 10.3 fl (9.4-12.4); MONOCYTE # 0.55 x10^3/uL (0.30-0.82); MONOCYTE % 11.1 % (5.3-12.2); PLATELET COUNT 168 x10^3/uL (163-337); RDW 13.1 % (12.6-16.6)
[2024-11-24 08:35] LABS: ALBUMIN 2.7 g/dl (3.4-5.0); CALCIUM 9.4 mg/dL (8.5-10.1)
[2024-11-24 08:39] LABS: BILIRUBIN,TOTAL 0.4 mg/dL (0.2-1); CREATININE 0.7 mg/dL (0.55-1.3)
[2024-11-24 08:40] LABS: TOT PROT 5.1 g/dl (6.4-8.2)
[2024-11-25 07:38] LABS: ABSOLUTE IMMATURE GRANULOCYTES 0.03 x10^3/uL (0.0-0.031); BASOPHILS # 0.02 x10^3/uL (0.01-0.08); EOSINOPHIL % 3.5 % (0.8-7.0); EOSINOPHILS # 0.15 x10^3/uL (0.04-0.54); HEMATOCRIT 32.1 % (40.1-51.0); HEMOGLOBIN 10.5 g/dL (13.7-17.5); MCHC 32.7 g/dl (32.3-36.5); MEAN CELL VOLUME 93.9 fl (79.0-92.2); MEAN PLT VOLUME 10.6 fl (9.4-12.4); MONOCYTE # 0.54 x10^3/uL (0.30-0.82); MONOCYTE % 12.8 % (5.3-12.2); PLATELET COUNT 186 x10^3/uL (163-337); RDW 13.1 % (12.6-16.6)
[2024-11-25 07:57] LABS: POTASSIUM 3.9 mmol/L (3.5-5.1)
[2024-11-25 08:02] LABS: CALCIUM 9.4 mg/dL (8.5-10.1)
[2024-11-25 08:03] LABS: ALBUMIN 2.6 g/dl (3.4-5.0); BLOOD UREA NITROGEN 20.9 mg/dL (7-18)
[2024-11-25 08:06] LABS: CREATININE 0.6 mg/dL (0.55-1.3)
[2024-11-25 08:07] LABS: BILIRUBIN,TOTAL 0.3 mg/dL (0.2-1); TOT PROT 4.9 g/dl (6.4-8.2)
[2024-11-25] MEDS: DULoxetine HCL 30 MG CAPSULE.DR PO SCH (09:06)
[2024-11-25] MEDS ORDERED: DULoxetine HCL 60 MG CAPSULE.DR PO SCH (10:00)
[2024-11-26] MEDS: ALPRAZolam 0.25 MG TABLET PO ONE (12:40)
[2024-11-26 14:40] VITALS: TEMP 97.9
[2024-11-26] MEDS: AMOX TR/POT CLAV 875MG/125MG TABLETS (FP) PO SCH (16:37)
[2024-11-26 18:39] VITALS: BP 108/54; PULSE 78
== END 2024-11-26 18:40 | DRG 689 ==
LOC: JER 10:35 → JERBED 18:53 → J7W 22:28 → OBSVTOIN 11-21 11:17
PROVIDERS: ADMIT Family Medicine; ATTEND Internal Medicine
DX: N39.0 Urinary tract infection, site not specified (principal); E43 Unspecified severe protein-calorie malnutrition; G92.8 Other toxic encephalopathy; E87.20 Acidosis, unspecified; Z68.1 Body mass index [BMI] 19.9 or less, adult; J44.9 Chronic obstructive pulmonary disease, unspecified; N40.0 Benign prostatic hyperplasia without lower urinary tract symptoms; E78.5 Hyperlipidemia, unspecified; G20.A1 Parkinson's disease without dyskinesia, without mention of fluctuations; F41.9 Anxiety disorder, unspecified; I35.0 Nonrheumatic aortic (valve) stenosis; D64.9 Anemia, unspecified; I10 Essential (primary) hypertension
CPT/HCPCS: 0241U-QW; 36415; 70450-TC; 70496-TC; 70498-TC; 70551-TC; 71045-TC-FY; 71250-TC; 80048; 80053; 80061; 81003; 82550; 82803; 82962; 83036; 83605; 83735; 84484; 85025; 85610; 85730; 86850; 86900; 86901; 87040; 87086; 87186; 93005; 93010; 94640; 97116-GP; 97162-GP; 99285-25; G0378; J0131; J0475; Q9967